=== PATIENT | male | born 1950 | race Caucasian/White ===

== ENCOUNTER 2020-11-18 13:35 | Outpatient (REF) | payer MEDICARE, SELFPAY ==
[2020-11-18 13:55] LABS: COVID-19 Test Negative (Negative)
== END 2020-11-18 13:36 | disposition home or self-care (01) ==
LOC: HO.LAB 13:35
PROVIDERS: Visit Provider Internal Medicine
DX: Z20.822 Contact with and (suspected) exposure to COVID-19 (principal)
CPT/HCPCS: 36415; 87635; C9803

== ENCOUNTER → 2021-02-10 09:47 | Outpatient (BNVA) | payer MEDICARE, SELFPAY | PROVIDERS: PCP Internal Medicine; Visit Provider Family Medicine Adult Medicine ==

== ENCOUNTER 2021-05-11 13:26 | Outpatient (REF) | payer MEDICARE, SELFPAY ==
[2021-05-11 15:00] LABS: Thyroid Stimulating Hormone 0.64 uIU/mL (0.32-4.0)
[2021-05-12 18:02] LABS: Follicle Stimulating Hormone 12.8 mIU/mL (1.6-8.0); Lutenizing Hormone 9.7 mIU/mL (1.6-15.2); Prolactin 2.6 ng/mL (2.0-18.0)
[2021-05-15 15:36] LABS: Testosterone, Free 46.6 pg/mL (30.0-135.0); Testosterone, Total 448 ng/dL (250-1100)
== END 2021-05-11 13:27 | disposition home or self-care (01) ==
LOC: HO.LAB 13:26
PROVIDERS: Visit Provider Psychiatry & Neurology Neurology
DX: D35.2 Benign neoplasm of pituitary gland (principal)
CPT/HCPCS: 36415; 83001; 83002; 84146; 84402; 84403; 84443

== ENCOUNTER 2021-09-07 12:05 | Emergency (ER) | payer MEDICARE, SELFPAY ==
[2021-09-07 12:19] VITALS: BP 148/77; PULSE 99; RESP 18; TEMP 36.7; O2SAT 95; BMI 31.9
--- NOTE | 2021-09-07 13:18 | ED_ITS ---
HPI - General Adult General Chief complaint: Skin/Abscess/Foreign Body Stated complaint: finger lac Time Seen by Provider: 09/07/21 12:16 Source: patient Mode of arrival: ambulatory Limitations: no limitations History of Present Illness HPI narrative: PATIENT PRESENTS TO ED CUTTING FINGER ON MANDOLINE. PATIENT STATES HE WAS CUTTING VEGETABLES AND ACCIDENTALLY CUT HIS THUMB. PATIENT STATES THERE WAS BLEEDING HE WENT TO THE PHARMACY AND GOT SPECIAL BAND-AID AND DRESSING CAME TO THE ED TO BE EVALUATED. PATIENT IS DIABETIC. PATIENT IS NOT ON ANY BLOOD THINNERS. PATIENT STATES NO OTHER TRAUMA OR ANY OTHER COMPLAINTS. Related Data Previous Rx's Medication Instructions Recorded cephalexin 500 mg capsule 500 mg PO QID 7 Days #28 cap 09/07/21 naproxen 500 mg tablet 500 mg PO BID PRN 10 Days #20 tab 09/07/21 Allergies Allergy/AdvReac Type Severity Reaction Status Date / Time UNK PAIN MED Allergy Intermediate HIVES Uncoded 04/24/20 14:53 Review of Systems Verdana 4l Review of Systems: Verdana 4d RIGHT THUMB Verdana 4d LACERATION Verdana 4d Yes all other systems are reviewed and are negative [facility] Past Medical History Surgical History (Updated 09/07/21 @ 12:21 by Mayuri Spears RN) H/O heart artery stent Social History Social History Advance Directives: Yes Advance Directives Information Provided: No Advance Directives on File: No Physical Exam Verdana 4l Vital Signs: Verdana 4d Verdana 4d Vital Signs: Verdana 4d Verdana 4Bd Last Vital Signs Verdana 4d Car Pick Up Driver New 4d Car Pick Up Driver New 4d Temp 98.0 F 09/07/21 12:19 Car Pick Up Driver New 4d Pulse 99 09/07/21 12:19 Car Pick Up Driver New 4d Resp 18 09/07/21 12:19 BP 148/77 H 09/07/21 12:19 Pulse Ox 95 09/07/21 12:19 BMI result Body Mass Index 31.9 Const: General: cooperative, healthy appearing, comfortable, no acute distress, well developed, alert, awake and Physically active Orientation/consciousness: patient oriented x3 HENMT: Head: Yes normal to inspection, Yes No palpable skull fracture present, Yes normocephalic, Yes atraumatic and No abrasion Eyes: General: appearance normal, both eyes and all related structures Neck: Neck: Yes normal visual inspection, Yes full ROM, Yes no lymphadenopathy, Yes no meningeal signs, Yes trachea midline and Yes supple Chest: Chest palpation & inspection: normal inspection of the chest and normal palpation of entire chest wall Resp: Effort & Inspection: normal respiratory effort and able to speak in complete sentences Auscultation: clear to auscultation bilaterally Cardio: Jugular venous distension: no JVD Heart sounds: S1 normal heart sound present and S2 normal heart sound present GI: Inspection: Yes normal to inspection and No abdominal wall ecchymosis Palpation (GI): Soft to palpation, not firm, nontender, no guarding and not rigid : General: No CVA tenderness and Yes no CVA tenderness Back/Spine/Pelvis: Back: no CVA tenderness, No CVA tenderness and No back tenderness Skin: Trauma: laceration (SKIN AVULSION RIGHT THUMB) Neuro: General: patient oriented x3, gait normal, no meningeal signs, no focal motor deficits and CN's II-XI intact bilaterally Extrem: General: Yes normal to inspection and Yes full ROM Hand/finger images: 1. POSITIVE FOR SKIN AVULSION. NEGATIVE FOR ANY BONE EXPOSURE OR NAILBED INJURY. NEGATIVE FOR ANY ACTIVE BLEEDING. CAPILLARY REFILL INTACT. PATIENT HAS COMPLETE RANGE OF MOTION OF FINGER. rEST OF EXTREMITY NORMAL AND MOTOR/NEURO/VASCULAR EXAM INTACT. Psych: Appearance: grossly normal, well kempt and not disheveled Course Course Course Narrative: X-RAY ORDERED. Reevaluation(s) Reevaluation #1: PATIENT REFUSED X-RAY AND STATES SKIN Avulsion is VERY SUPERFICIAL. PATIENT STATES UP-TO-DATE WITH TETANUS SHOT. WOUND CLEANED WITH STERILE SALINE AND BETADINE IODINE. PRESSURE DRESSING PLACED WITH XEROFORM PLACED. PATIENT WILL BE DISCHARGED WITH ANTIBIOTICS DUE TO HISTORY OF DIABETES. Time: 13:23 Medical Decision Making [facility] Narrative Medical decision making narrative: SUPERFICIAL SKIN AVULSION Discharge Plan Discharge Clinical Impression: Avulsion of skin Patient Disposition: Home, Self-Care Instructions: Skin Avulsion (ED) Additional Instructions: DUE TO HISTORY OF DIABETES HE WILL BE DISCHARGED WITH ANTIBIOTICS TO PREVENT INFECTION. RETURN TO THE ED FOR ANY REDNESS, SWELLING, PUS DISCHARGE, FOUL ODOR, BLUISH BLACK DISCOLORATION OF FINGER, FEVER, CHILLS, OR ANY OTHER CONCERNING SYMPTOMS. Prescriptions: New cephalexin 500 mg capsule 500 mg PO QID 7 Days Qty: 28 0RF naproxen 500 mg tablet 500 mg PO BID PRN (Reason: pain) 10 Days Qty: 20 0RF Referrals: Gabriella Rucker MD [Physician] - 2 days (SKIN AVULSION OF FINGER) Interventions: ED Discharge Assessment Last Done: 09/07/21 13:44 Discharge Date/Time: 09/07/21 13:44 Print Language: Dominican
== END 2021-09-07 13:44 | disposition home or self-care (01) ==
PROVIDERS: Emergency Provider Emergency Medicine Emergency Medical Services; PCP Internal Medicine
DX: S61.011A Laceration without foreign body of right thumb without damage to nail, initial encounter (principal); W26.0XXA Contact with knife, initial encounter; Y93.G1 Activity, food preparation and clean up; Y92.010 Kitchen of single-family (private) house as the place of occurrence of the external cause; Y99.9 Unspecified external cause status; E11.9 Type 2 diabetes mellitus without complications
CPT/HCPCS: 99281; 99282; 99283

== ENCOUNTER 2022-06-14 18:51 | Emergency (ER) | payer MEDICARE, SELFPAY ==
--- NOTE | ~2022-06-14 | CT_ITS ---
EXAMINATION: CT CHEST, ABDOMEN AND PELVIS WITHOUT CONTRAST CLINICAL INFORMATION: Shortness of breath hypotension with elevated creatinine COMPARISON: CT chest 05/03/2016 TECHNIQUE: Multidetector volumetric imaging was performed from the thoracic inlet through the pubic symphysis without IV contrast. Sagittal and coronal reformatted images were obtained on the technologist's workstation. This CT examination was performed using dose optimization techniques as appropriate, variously including the following: *Automated exposure control *Adjustment of mA and/or kV according to patient size (this includes techniques or standardized protocols for targeted exams where dose is matched to indication/reason for exam; i.e. extremities or head) *Use of iterative reconstruction technique DLP: 1021 mGy-cm FINDINGS: CHEST: Lung: The lungs are clear without worrisome focal opacity or nodule. Mediastinum: The mediastinum is unremarkable. The noncontrast enhanced aorta and great vessels are unremarkable. No hilar or mediastinal lymphadenopathy. Moderate coronary calcifications are present. Pericardium/Pleura: No significant effusion. No pleural mass or thickening. Chest Wall/Axilla: Unremarkable ABDOMEN/PELVIS: Peritoneal Space: No significant free air or free fluid identified. Liver, Gallbladder, Biliary Tree: The liver is normal in size, shape, and attenuation. No focal hepatic lesion or biliary ductal dilatation is present. The gallbladder is unremarkable with no evidence of radiopaque gallstones, gallbladder wall thickening, or obvious pericholecystic inflammatory changes. Pancreas: Unremarkable Spleen: Unremarkable Adrenal Glands: Unremarkable Kidneys and Ureters: The kidneys are normal in size, shape, and attenuation. No hydronephrosis, hydroureter, or calculi seen. No perinephric stranding. Bladder: Unremarkable Gastrointestinal Tract: The small and large bowel are unremarkable aside from some scattered colonic diverticula without diverticulitis. The appendix is unremarkable. Abdominal Wall: No significant hernia is appreciated. Lymph Nodes: No lymphadenopathy. Mild increased hazy opacity in the small bowel mesentery may be seen with mesenteric panniculitis. Vascular: Mild calcific plaque present in the aorta with some minimal infrarenal dilatation at 2.7 cm.. The IVC appears unremarkable. PELVIC VISCERA: There is mild BPH. Seminal vesicles appear normal. OSSEUS STRUCTURES: Marked degenerative changes are noted throughout the spine. No bony destructive lesions are seen. CT/CT abdomen pelvis wo IV con IMPRESSION: A cause for the patient's shortness of breath and hypotension has not been found. Incidental findings as described above. Fleischner guidelines were followed.
--- NOTE | ~2022-06-14 | XR_ITS ---
EXAMINATION: XR CHEST CLINICAL INFORMATION: Status post fall. Pain. COMPARISON: Chest x-ray of 07/11/2006 and selected images of the chest CT of 05/05/2016 TECHNIQUE: Frontal view of the chest was obtained. FINDINGS: Cardiomediastinal silhouette is stable. No abnormal tracheal deviation. The lungs are mildly hyperexpanded. No focal consolidation, changes of congestion or pleural effusions are seen. No evidence of pneumothorax. Displaced fractures of the visualized ribs. Multilevel degenerative changes in the spine. XR/XR chest 1V IMPRESSION: No displaced rib fracture is noted. No evidence acute pulmonary process, pleural effusions or pneumothorax.
[2022-06-14 19:07] VITALS: BP 110/50; PULSE 94; RESP 20; TEMP 36.7; O2SAT 96; BMI 31.1
--- NOTE | 2022-06-14 19:11 | ECG_ITS ---
Test Reason : FALL Blood Pressure : / mmHG Vent. Rate : 088 BPM Atrial Rate : 088 BPM P-R Int : 220 ms QRS Dur : 098 ms QT Int : 382 ms P-R-T Axes : 051 -23 082 degrees QTc Int : 462 ms Sinus rhythm with 1st degree A-V block Low voltage QRS Inferior infarct , age undetermined Anterolateral infarct , age undetermined Abnormal ECG When compared with ECG of 21-JUN-2016 22:10, Significant changes have occurred Referred By: Generic ED Physician Electronically Signed By:MELISSA MACHADO MD
[2022-06-14 19:47] LABS: MANUAL DIFF FLAG NO
[2022-06-14 19:51] LABS: Basophils Percent Auto 0.3 % (0-2); Eosinophils Absolute Auto 0.1 X10*3/uL (0.0-0.4); Eosinophils Percent Auto 0.7 % (0-4); Hematocrit 44.1 % (42.0-52.0); Hemoglobin 14.4 g/dl (14.0-18.0); Imm Gran Abs Auto 0.04 X10*3/uL (0.00-0.03); Imm Gran Pct Auto 0.4 % (0.0-0.4); Lymphocytes Absolute Auto 1.3 X10*3/uL (1.2-4.9); Lymphocytes Percent Auto 14.3 % (20-40); Mean Corpuscular HGB Conc 32.7 g/dl (31.0-36.0); Mean Corpuscular Hemoglobin 29.4 pg (27.0-33.0); Mean Corpuscular Volume 90.2 fL (80.0-98.0); Mean Platelet Volume 10.6 fL (9.4-12.4); Monocytes Absolute Auto 0.8 X10*3/uL (0.1-1.2); Monocytes Percent Auto 8.5 % (2-11); Neutrophils Absolute Auto 6.8 x10*3/uL (2.0-8.3); Neutrophils Percent Auto 75.8 % (45-73); Platelet Count 199 X10*3/uL (160-400); Red Blood Count 4.89 X10*6/uL (4.60-5.80); Red Cell Distribution Width 14.6 % (11.0-16.0)
[2022-06-14 20:00] VITALS: BP 97/56; PULSE 95; RESP 25; TEMP 37.2; O2SAT 96
[2022-06-14 20:06] LABS: Anion Gap 19 (12-20); Blood Urea Nitrogen 51 mg/dL (9-16); Calcium 9.4 mg/dL (8.4-10.2); Carbon Dioxide 27 mmol/L (22-29); Chloride 100 mmol/L (96-108); Creatinine Clr Calc Pharmacy 30.7; Estimated Glomerular Filt Rate 26; Glucose Random 259 mg/dL (60-115); Potassium 5.6 mmol/L (3.3-5.1); Sodium 140 mmol/L (135-145)
--- OUTSIDE RECORDS SUMMARY | 2022-06-14 20:11 | XMS_ITS | Continuity of Care Document ---
:1950 Author Organization [address], [address] [place] [address]- Care Team Providers Name Role Phone Mike DELA CRUZ MD, Valdez Watts Primary Care Physician Encounter [facility] Date(s): 06/02/21 - 07/02/[address], [address] [place], [place] [address] Allergies, Adverse Reactions, Alerts Substance Reaction Severity Status NKA Active Immunizations Given and Recorded Vaccine Date Status Refusal Reason influenza virus vaccine, inactivated1 04/20/17 Recorded pneumococcal 13-valent vaccine 04/04/17 Given tetanus/diphtheria/pertussis, acel(Tdap)2 05/26/15 Record ed Zoster Vaccine Live3 04/19/14 Recorded pneumococcal 23-valent vaccine4 03/22/14 Recorded [id number] Medications aspirin 81 mg oral tablet = 81 mg, By Mouth, Daily, # 30 tablet, 0 Refills, Maintenance, 06/24/16 11:58:38, Tablet Start Date: 06/24/16 Stop Date: 07/24/16 Status: Orderedcarvedilol 6.25 mg oral tablet 6.25 mg, 1, tablet, By Mouth, 2 times a day, PER DR ALMONTE ON 04/04/17, # 180 tablet, Refills 3, Tot. Refills 3, Maintenance, 04/15/17 11:06:09, Route to Pharmacy Electronically, [id number], [facility] Start Date: 04/15/17 Status: OrderedCrestor 40 mg oral tablet 1 tablet = 40 mg, By Mouth, Daily, PER DR ALMONTE ON 04/04/17, # 90 tablet, 3 Refills, Maintenance,04/15/17 11:06:01, Tablet Start Date: 04/15/17 Status: Orderedgabapentin 300 mg oral capsule 600 mg, 2, capsule, By Mouth, 2 times a day, # 90 capsule, Refills 3, Tot. Refills 3, Maintenance, 05/17/17 16:29:40 EDT, Route to Pharmacy Electronically, [id number], [facility] [address] [place] [address] Start Date: 05/17/17 Status: OrderedLantus 100 u/ml subcutaneous solution = 13 units, Subcutaneous Injection, Daily, # 10 mL, 0 Refills, Maintenance, 02/16/18 7:02:58 EDT, Solution Start Date: 02/16/18 Status: Orderedlisinopril 10 mg oral tablet 10 mg, 1, tablet, By Mouth, Daily, # 30 tablet, Refills 0, Maintenance, 02/16/18 7:03:50 EDT Start Date: 02/16/18 Status: OrderedmetFORMIN 500 mg oral tablet 1 tablet = 500 mg, By Mouth, 2 times a day, PER DR ALMONTE ON 04/04/17, # 180 tablet, 3 Refills, Maintenance, 04/15/17 11:06:01, Tablet Start Date: 04/15/17 Status: Orderednitroglycerin 0.4 mg sublingual tablet 1 tablet = 0.4 mg, Sublingual, Every 5 minutes, PRN for chest pain, # 100 tablet, 0 Refills, Maintenance, 02/16/18 7:04:36 EDT, Tablet Start Date: 02/16/18 Status: OrderedPlavix 75 mg oral tablet 75 mg, 1, tablet, By Mouth, Daily, PER DR ALMONTE ON 04/04/17, # 90 tablet, Refills 3, Tot. Refills3, Maintenance, 04/15/17 11:06:02, Route to Pharmacy Electronically, [id number], [facility] Start Date: 04/15/17 Status: OrderedSuper B Complex 1 tablet, By Mouth, Daily, 0 Refills, Maintenance, 02/16/18 7:02:13 EDT Start Date: 02/16/18 Status: OrderedVitamin D3 2000 intl units oral tablet 1 tablet = 2,000 International_Units, By Mouth, Daily, # 90 tablet, 3 Refills, Maintenance, 04/04/1716:21:47, Tablet Start Date: 04/04/17 Status: Ordered Problem List Condition Effective Dates Status Health Status Informant Adverse effects of medication, Active levorphanol(Confirmed)1 Asthma(Confirmed) Active Buttock pain(Confirmed) Active CAD - Coronary artery 06/21/16 Active Acute ; disease(Confirmed) Testosterone level Active decreased(Confirmed) Diabetes mellitus type 2(Confirmed) Active Diminished libido(Confirmed) Active Drug interaction(Confirmed)2 Active Constipation, opioid treatment Active associated(Confirmed) Limitation due to Active disability(Confirmed)3, 4 History of total knee 11/02/07 Active replacement(Confirmed)5 History of poliomyelitis(Confirmed)6 Active Hand joint pain(Confirmed) Active Hearing difficulty(Confirmed) Active History of arthroscopic shoulder 09/19/09 Active surgery(Confirmed)7 History of repair of right rotator 2003 Active cuff(Confirmed) Hypercholesteremia(Confirmed) Active Hypertriglyceridemia(Confirmed) Active Knee pain, left(Confirmed) Active Leg cramps, nocturnal(Confirmed) Active Failed back syndrome, Active lumbosacral(Confirmed) Major depression(Confirmed) Active Meralgia paresthetica(Confirmed) Active Neck pain(Confirmed) Active Neuralgia and neuritis, lower Active extremity, left(Confirmed) MONSERRAT - Obstructive sleep Active apnea(Confirmed)8, 9 Leg pain, left(Confirmed) Active Radicular pain of lumbosacral Active region(Confirmed) Repair of quadriceps(Confirmed)2000 Active Sacroiliac joint pain(Confirmed) Active Shoulder pain, left(Confirmed)11 Active Lack of adequate sleep(Confirmed) Active Status post coronary artery stent 2006 Active placement(Confirmed) Situational stress(Confirmed) Active Tinnitus(Confirmed) Active Tobacco user(Confirmed) Active Vitamin D deficiency(Confirmed) Active 06/21-08/22/14: 6mg/dose TID for 1.5 days. AEs: bright red face, big hives on my forehead and whole face/cheeks were really itchy. He reports difficulty staying awake, even while involved w/activity andfeeling impaired.2h/o tramadol treatment; cholesterol lowering agent and opioid co-treatment(current); h/o total CK > 150 < 3103Updated Oswestry Disability Index: 52% severe disability and [place] Back Pain Disability Scale: 47. Initial Neck Disability Index: 24% on 08/09/2014.4Updated Oswestry Disability Index: 17.7% ( mininal disability ) on 07/12/13; updated [place] Back PainDisability Scale score: 26 on 07/12/13. Updated Oswestry Disability Index: 40% (moderate disability ) on 01/11/13; updated [place] Back Pain Disability Scale score: 44 on 01/10/13 Updated Oswestry Disability Index: 44% ( severe disability ) on 02/21/12; updated [place] Back Pain Disability Scale score: 33 on 02/21/12 Initial Oswestry Disability Index: 46% ( severe disability )on 09/14/10; initial [place] Back Pain Disability Scale score: 41 on On 11/02/2007 underwent left total knee arthroplasty with hardware removal for osteoarthritis, left knee with retained hardware by Son Rivera M.D. at [facility].6with no apparent [id number], Dr. 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 He reports a 38 year history of smoking at least 2 packs a day.; Number of years: 38; entered on: 07/02/16 Sex
--- OUTSIDE RECORDS SUMMARY | 2022-06-14 20:11 | XMS_ITS | Continuity of Care Document ---
:1950 Author Organization [facility] Address [address] [place] [address]- Care Team Providers Name Role Phone Valdez Mckeon III, MD Primary Care Physician Encounter [facility] Date(s): 02/09/22 - 02/09/[address] [address] Discharge Disposition: A-D/C Home Attending Physician: Thony Hodgson MD Admitting Physician: Thony Hodgson MD Referring Physician: Thony Hodgson MD Allergies, Adverse Reactions, Alerts No Known Allergies Immunizations Given and Recorded Vaccine Date Status Refusal Reason influenza virus vaccine, inactivated1 04/20/17 Recorded pneumococcal 13-valent vaccine 04/04/17 Given tetanus/diphtheria/pertussis, acel(Tdap)2 05/26/15 Record ed Zoster Vaccine Live3 04/19/14 Recorded pneumococcal 23-valent vaccine4 03/22/14 Recorded 1[facility] [id number] [id number] [facility] Medications Albuterol (Eqv-ProAir HFA) Inhalation, Every 6 hours, PRN Wheezing/Shortness of Breath, 0 Refills, Maintenance, 09/30/21 9:31:00 EST, Partial fill upon patient request if the prescription is for a schedule II opioid drug. Start Date: 09/30/21 Status: OrderedBasaglar KwikPen = 22 units, Subcutaneous Infusion, 2 times a day, 0 Refills, Maintenance, 09/30/21 9:34:00 EST, Partial fill upon patient request if the prescription is for a schedule II opioid drug. Start Date: 09/30/21 Status: Orderedcarvedilol 6.25 mg oral tablet 6.25 mg, 1, tablet, By Mouth, 2 times a day, PER DR ALMONTE ON 04/04/17, # 180 tablet, Refills 3, Tot. Refills 3, Maintenance, 04/15/17 11:06:09, Route to Pharmacy Electronically, [id number], [facility] Start Date: 04/15/17 Status: Orderedchlorthalidone 25 mg oral tablet 25 mg, 1, tablet, By Mouth, Daily at bedtime, # 30 tablet, Refills 0, Maintenance, 02/02/22 15:48:00EDT, Partial fill upon patient request if the prescription is for a schedule II opioid drug. Start Date: 02/02/22 Status: OrderedCrestor 40 mg oral tablet 1 tablet = 40 mg, By Mouth, Daily, PER DR ALMONTE ON 04/04/17, # 90 tablet, 3 Refills, Maintenance,04/15/17 11:06:01, Tablet Start Date: 04/15/17 Status: Orderedgabapentin 800 mg oral tablet 1 tablet = 800 mg, By Mouth, 3 times a day, # 270 tablet, 0 Refills, Maintenance, 02/02/22 15:46:00 EDT, Tablet, Partial fill upon patient request if the prescription is for a schedule II opioid drug. Start Date: 02/02/22 Status: Orderedlisinopril 10 mg oral tablet 10 mg, 1, tablet, By Mouth, Daily at bedtime, # 30 tablet, Refills 0, Maintenance, 02/16/18 7:03:50 EDT Start Date: 02/16/18 Status: Orderednitroglycerin 0.4 mg sublingual tablet 1 tablet = 0.4 mg, Sublingual, Every 5 minutes, PRN for chest pain, # 100 tablet, 0 Refills, Maintenance, 02/16/18 7:04:36 EDT, Tablet Start Date: 02/16/18 Status: OrderedoxyCODONE 5 mg oral tablet 5 mg, 1, tablet, By Mouth, Every 6 hours, PRN, # 42 tablet, Refills 0, Tot. Refills 0, Maintenance, Pain , Mild, 02/09/22 12:44:00 EDT, Route to Pharmacy Electronically, [facility]/pharmacy #[id number], Partial fill upon patient request if the prescription is for... Start Date: 02/09/22 Status: OrderedSuper B Complex 1 tablet, By Mouth, Daily at bedtime, 0 Refills, Maintenance, 02/16/18 7:02:13 EDT Start Date: 02/16/18 Status: OrderedtiZANidine 4 mg oral tablet 4 mg, 1, tablet, By Mouth, 3 times a day, # 90 tablet, Refills 0, Tot. Refills 0, Maintenance, 02/09/22 12:44:00 EDT, Route to Pharmacy Electronically, [facility]/pharmacy #[id number], Partial fill upon patient request if the prescription is for a schedule II opio... Start Date: 02/09/22 Status: OrderedTrulicity Pen = 1.5 mg, Subcutaneous Infusion, Every Tuesday, 0 Refills, Maintenance, 09/30/21 9:32:00 EST, Partial fill upon patient request if the prescription is for a schedule II opioid drug. Start Date: 09/30/21 Status: OrderedVitamin D3 2000 intl units oral tablet 1 tablet = 2,000 International_Units, By Mouth, Daily, # 90 tablet, 3 Refills, Maintenance, 04/04/1716:21:47, Tablet Start Date: 04/04/17 Status: Ordered Problem List Condition Effective Dates Status Health Status Informant Adverse effects of medication, Active levorphanol(Confirmed)1 Asthma(Confirmed) Active CAD - Coronary artery 06/21/16 Active Acute ; disease(Confirmed) Testosterone level Active decreased(Confirmed) Diabetes mellitus type 2(Confirmed) Active Diminished libido(Confirmed) Active Drug interaction(Confirmed)2 Active Limitation due to Active disability(Confirmed)3, 4 History of total knee 11/02/07 Active replacement(Confirmed)5 History of poliomyelitis(Confirmed)6 Active Hand joint pain(Confirmed) Active Hearing difficulty(Confirmed) Active History of arthroscopic shoulder 09/19/09 Active surgery(Confirmed)7 History of repair of right rotator 2003 Active cuff(Confirmed) Hypercholesteremia(Confirmed) Active Hypertriglyceridemia(Confirmed) Active Knee pain, left(Confirmed) Active Leg cramps, nocturnal(Confirmed) Active Failed back syndrome, Active lumbosacral(Confirmed) Meralgia paresthetica(Confirmed) Active Neck pain(Confirmed) Active Neuralgia and neuritis, lower Active extremity, left(Confirmed) Obese class I(Confirmed) Active MONSERRAT - Obstructive sleep Active apnea(Confirmed)8, 9 Leg pain, left(Confirmed) Active Pituitary microadenoma(Confirmed) Active Radicular pain of lumbosacral Active region(Confirmed) Repair of quadriceps(Confirmed)10 2000 Active Sacroiliac joint pain(Confirmed) Active Shoulder pain, [...] Oswestry Disability Index: 52% severe disability and [place] Back Pain Disability Scale: 47. Initial Neck Disability Index: 24% on 08/09/2014.4Updated Oswestry Disability Index: 17.7% ( mininal disability ) on 07/12/13; updated [place] Back PainDisability Scale score: 26 on 07/12/13. Updated Oswestry Disability Index: 40% (moderate disability ) on 01/11/13; updated [place] Back Pain Disability Scale score: 44 on 01/10/13 Updated Oswestry Disability Index: 44% ( severe disability ) on 02/21/12; updated [place] Back Pain Disability Scale score: 33 on 02/21/12 Initial Oswestry Disability Index: 46% ( severe disability )on 09/14/10; initial [place] Back Pain Disability Scale score: 41 on On 11/02/2007 underwent left total knee arthroplasty with hardware removal for osteoarthritis, left knee with retained hardware by Son Rivera M.D. at [facility].6with no apparent [id number], Dr. Guanakito Villegas, [id number] [place] Sleepiness Scale: 11 on 07/16/2014.9[facility] study performed on 10/01/06 describes mild sleep- disordered breathing with an RDI of 1310of right [id number] to chronic rotator cuff injury Results Radiology Reports Exam Date Time Procedure Performing Provider Status 02/09/22 9:28 AM C-Arm > 1 Hour Merna Alvarado; Auth (Verifie d) Notes:(C-Arm > 1 Hour) Reason For Exam: disc C5-C6 ACDFRESULT: C-Arm > 1 Hour Spine Single View, C-Arm > 1 Hour INDICATION: Reason: disc C5-C6 ACDF COMPARISONS: None TECHNIQUE: Fluoroscopy support was provided. There was no radiologist in attendance. FLUOROSCOPY TIME: 48.0 seconds EXPOSURE: 21.87 mGy TECHNOLOGIST TIME: 1 hour 5 minutes FINDINGS: 14 images were submitted showing ACDF. Please refer to operative note for full details. IMPRESSION: See above. WSN: [id number] Ordering Physician: Thony Hodgson Dictated By: Anthony Garcia MD Dictated Date/Time: 02/09/22 10:07 a Reviewed By: Anthony Garcia MD Signed By: Anthony Garcia MD Signed Date/Time: 02/09/22 10:07 am Transcribed By: BENI Transcribed Date/Time: 02/09/22 10:07 am Exam Date Time Procedure Performing Provider Status 02/09/22 9:28 AM Spine Single View Merna Alvarado; Auth (Verif ied) Notes:(Spine Single View) Reason For Exam: disc C5-C6 ACDFRESULT: Spine Single View Spine Single View, C-Arm > 1 Hour INDICATION: Reason: disc C5-C6 ACDF COMPARISONS: None TECHNIQUE: Fluoroscopy support was provided. There was no radiologist in attendance. FLUOROSCOPY TIME: 48.0 seconds EXPOSURE: 21.87 mGy TECHNOLOGIST TIME: 1 hour 5 minutes FINDINGS: 14 images were submitted showing ACDF. Please refer to operative note for full details. IMPRESSION: See above. WSN: [id number] Ordering Physician: Thony Hodgson Dictated By: Anthony Garcia MD Dictated Date/Time: 02/09/22 10:07 a Reviewed By: Anthony Garcia MD Signed By: Anthony Garcia MD Signed Date/Time: 02/09/22 10:07 am Transcribed By: BENI Transcribed Date/Time: 02/09/22 10:07 am Vital Signs Most recent to oldest 1 2 3 [Reference Range]: Height 170 cm 170 cm (02/09/22 6:23 AM) (02/04/22 11:07 AM) Weight 97.7 kg 99.5 kg (02/09/22 6:23 AM) (02/04/22 11:07 AM) Oxygen Saturation [94-100 96 % 95 % 94 % %] (02/09/22 12:00 PM) (02/09/22 11:15 AM) (02/09/22 11:0 0 AM) Pulse Rate [55-90 bpm] 76 bpm (02/09/22 6:23 AM) Body Mass Index 33.81 34.43 [18.5-24.99] *>HHI* *>HHI* (02/09/22 6:23 AM) (02/04/22 11:07 AM) Blood Pressure 128/81 mm Hg 131/70 mm Hg 144/69 mm Hg [90-138/55-84 mm Hg] (02/09/22 12:00 PM) (02/09/22 11:15 AM) *H* (02/09/22 11:00 AM ) Respiratory Rate [16-30 17 br/min 17 br/min 14 br/mi n br/min] (02/09/22 12:00 PM) (02/09/22 11:15 AM) *L* (02/09/22 11:00 AM ) Temperature [96.8-100.4 98.9 DegF 97.3 DegF 97.4 Deg F DegF] (02/09/22 12:00 PM) (02/09/22 11:00 AM) (02/09/22 9:45 AM) Liters per Minute 2 L/min 6 L/min (02/09/22 10:15 AM) (02/09/22 9:45 AM) Mode of Delivery (Oxygen) Room air Room air Room a ir (02/09/22 12:00 PM) (02/09/22 11:00 AM) (02/09/22 10:4 5 AM) Blood pressure sites Arm, left Arm, left Arm, right (02/09/22 11:15 AM) (02/09/22 11:00 AM) (02/09/22 10:4 5 AM) Temperature Route Temporal Temporal Temporal (02/09/22 12:00 PM) (02/09/22 11:00 AM) (02/09/22 9:45 AM) Dry Weight 97.7 kg (02/09/22 6:23 AM) Weight Obtained Via Standing scale Patient/family stated (02/09/22 6:23 AM) (02/04/22 11:07 AM) Dry Weight Obtained Via Standing scale (02/09/22 6:23 AM) Social History Social History Type Response Smoking Status Former smoker; Type: Cigaret mckenna; 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 He reports a 38 year history of smoking at least 2 packs a day.; Number of years: 38; entered on: 07/02/16 Sex
--- OUTSIDE RECORDS SUMMARY | 2022-06-14 20:11 | XMS_ITS | Continuity of Care Document ---
:1950 Author Organization [address], [address] [place] [address]- Care Team Providers Name Role Phone Mike DELA CRUZ MD, Valdez Watts Primary Care Physician [facility] Date(s): 09/14/21 - 10/14/[address], [address] [place], [place] [address] Allergies, Adverse Reactions, Alerts No Known Allergies Immunizations Given and Recorded Vaccine Date Status Refusal Reason influenza virus vaccine, inactivated1 04/20/17 Recorded pneumococcal 13-valent vaccine 04/04/17 Given tetanus/diphtheria/pertussis, acel(Tdap)2 05/26/15 Record ed Zoster Vaccine Live3 04/19/14 Recorded pneumococcal 23-valent vaccine4 03/22/14 Recorded 1Location History: [facility] [id number] History: [facility] History[facility] Medications Albuterol (Eqv-ProAir HFA) Inhalation, Every 6 hours, 0 Refills, Maintenance, 09/30/21 9:31:00 EST, Partial fill upon patient request if the prescription is for a schedule II opioid drug. Start Date: 09/30/21 Status: Orderedaspirin 81 mg oral tablet = 81 mg, By Mouth, Daily, # 30 tablet, 0 Refills, Maintenance, 06/24/16 11:58:38, Tablet Start Date: 06/24/16 Stop Date: 07/24/16 Status: OrderedBasaglar KwikPen Subcutaneous Infusion, Daily, 0 Refills, Maintenance, 09/30/21 9:34:00 EST, Partial fill upon patient request if the prescription is for a schedule II opioid drug. Start Date: 09/30/21 Status: Orderedcarvedilol 6.25 mg oral tablet 6.25 mg, 1, tablet, By Mouth, 2 times a day, PER DR ALMONTE ON 04/04/17, # 180 tablet, Refills 3, Tot. Refills 3, Maintenance, 04/15/17 11:06:09, Route to Pharmacy Electronically, [id number], [facility] Start Date: 04/15/17 Status: OrderedCrestor 40 mg oral tablet 1 tablet = 40 mg, By Mouth, Daily, PER DR ALMONTE ON 04/04/17, # 90 tablet, 3 Refills, Maintenance,04/15/17 11:06:01, Tablet Start Date: 04/15/17 Status: OrderedDuloxetine By Mouth, 0 Refills, Maintenance, 09/30/21 9:33:00 EST, Partial fill upon patient request if the prescription is for a schedule II opioid drug. Start Date: 09/30/21 Status: Orderedgabapentin 300 mg oral capsule 600 mg, 2, capsule, By Mouth, 2 times a day, # 90 capsule, Refills 3, Tot. Refills 3, Maintenance, 05/17/17 16:29:40 EDT, Route to Pharmacy Electronically, [id number], [facility] - [address] [place] [address] Start Date: 05/17/17 Status: OrderedLantus 100 u/ml subcutaneous solution = 13 units, Subcutaneous Injection, Daily, # 10 mL, 0 Refills, Maintenance, 02/16/18 7:02:58 EDT, Solution Start Date: 02/16/18 Status: Orderedlisinopril 10 mg oral tablet 10 mg, 1, tablet, By Mouth, Daily, # 30 tablet, Refills 0, Maintenance, 02/16/18 7:03:50 EDT Start Date: 02/16/18 Status: OrderedMeloxicam Daily, 0 Refills, Maintenance, 09/30/21 9:33:00 EST, Partial fill upon patient request if the prescription is for a schedule II opioid drug. Start Date: 09/30/21 Status: OrderedmetFORMIN 500 mg oral tablet 1 [...] Maintenance, 04/15/17 11:06:02, Route to Pharmacy Electronically, [id number], [facility] Start Date: 04/15/17 Status: OrderedSuper B Complex 1 tablet, By Mouth, Daily, 0 Refills, Maintenance, 02/16/18 7:02:13 EDT Start Date: 02/16/18 Status: OrderedTrulicity Pen Subcutaneous Infusion, 0 Refills, Maintenance, 09/30/21 9:32:00 EST, Partial [...] sleep(Confirmed) Active Status post coronary artery stent 2005 Active placement(Confirmed) Situational stress(Confirmed) Active Tinnitus(Confirmed) Active [...] Index: 52% severe disability and [place] Back Pain Disability Scale: 47. Initial Neck Disability Index: 24% on 08/09/2014.4Updated Oswestry Disability Index: 17.7% ( mininal disability ) on 07/12/13; updated [place] Back PainDisability Scale score: 26 on 07/12/13. Updated [place]estry Disability Index: 40% (moderate disability ) on 01/11/13; updated [place] Back Pain Disability Scale score: 44 on 01/10/13 Updated [place]estry Disability Index: 44% ( severe disability ) on 02/21/12; updated [place] Back Pain Disability Scale score: 33 on 02/21/12 Initial [place]estry Disability Index: 46% ( severe disability )on 09/14/10; initial [place] Back Pain Disability Scale score: 41 on On 11/02/2007 underwent left total knee arthroplasty with hardware removal for osteoarthritis, left knee with retained hardware by Son Rivera M.D. at [facility].6with no apparent jlwgaymy6Cixr, Dr. 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 He reports a 38 year history of smoking at least 2 packs a day.; Number of years: 38; entered on: 07/02/16 Sex
--- OUTSIDE RECORDS SUMMARY | 2022-06-14 20:11 | XMS_ITS | Continuity of Care Document ---
:1950 Author Organization [address], [address] [place] [address]- Care Team Providers Name Role Phone Mike DELA CRUZ MD, Valdez Watts Primary Care Physician [facility] Date[facility]s): 09/08/21 - 10/08/[address], [address] [place], [place] [address] Allergies, Adverse Reactions, Alerts No Known Allergies Immunizations Given and Recorded Vaccine Date Status Refusal Reason influenza virus vaccine, inactivated1 04/20/17 Recorded pneumococcal 13-valent vaccine 04/04/17 Given tetanus/diphtheria/pertussis, acel(Tdap)2 05/26/15 Record ed Zoster Vaccine Live3 04/19/14 Recorded pneumococcal 23-valent vaccine4 03/22/14 Recorded 1[facility] History: [facility] [id number] [facility]: [facility] Medications Albuterol (Eqv-ProAir HFA) Inhalation, Every 6 [...] Maintenance, 04/15/17 11:06:09, Route to Pharmacy Electronically, [id number], [facility] Start Date: 04/15/17 Status: [...] 05/17/17 16:29:40 EDT, Route to Pharmacy Electronically, [id number], [facility] - [address] [place] [address] Start Date: 05/17/17 Status: OrderedLantus 100 u/ml [...] Maintenance, 04/15/17 11:06:02, Route to Pharmacy Electronically, [id number], [facility] Start Date: 04/15/17 Status: [...] surgery(Confirmed)7 History of repair of right rotator 2002 Active cuff(Confirmed) Hypercholesteremia(Confirmed) Active Hypertriglyceridemia(Confirmed) Active Knee [...] Oswestry Disability Index: 52% severe disability and [place] Back Pain Disability Scale: 47. Initial Neck Disability Index: 24% on 08/09/2014.4Updated Oswestry Disability Index: 17.7% ( mininal disability ) on 07/12/13; updated [place] Back PainDisability Scale score: 26 on 07/12/13. Updated Oswestry Disability Index: 40% (moderate disability ) on 01/11/13; updated [place] Back Pain Disability Scale score: 44 on 01/10/13 Updated Oswestry Disability Index: 44% ( severe disability ) on 02/21/12; updated [place] Back Pain Disability Scale score: 33 on 02/21/12 Initial Oswestry Disability Index: 46% ( severe disability )on 09/14/10; initial [place] Back Pain Disability Scale score: 41 on On 11/02/2007 underwent left total knee arthroplasty with hardware removal for osteoarthritis, left knee with retained hardware by Son Rivera M.D. at [facility].6with no apparent khwxeagr4Zrdd, Dr. 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 He reports a 38 year history of smoking at least 2 packs a day.; Number of years: 38; entered on: 07/02/16 Sex
--- OUTSIDE RECORDS SUMMARY | 2022-06-14 20:11 | XMS_ITS | Continuity of Care Document ---
:1950 Author Organization [address], [address] [place] [address]- Care Team Providers Name Role Phone Valdez Mckeon III, MD Primary Care Physician Encounter [facility] Date(s): 03/10/22 - 04/09/[address], [address] [place], [place] [address] Attending Physician: AdmFlorencio minor Admitting Physician: AdmtrFlorencio Referring Physician: Admtr, Ar8 Allergies, Adverse Reactions, Alerts No Known Allergies Immunizations Given and Recorded Vaccine Date Status Refusal Reason influenza virus vaccine, inactivated1 04/20/17 Recorded pneumococcal 13-valent vaccine 04/04/17 Given tetanus/diphtheria/pertussis, acel(Tdap)2 05/26/15 Record ed Zoster Vaccine Live3 04/19/14 Recorded pneumococcal 23-valent vaccine4 03/22/14 Recorded 1[facility] History[facility] [id number] [facility] [id number] History: [facility] [address] [id number] [facility] Medications Albuterol (Eqv-ProAir HFA) Inhalation, Every 6 [...] Maintenance, 04/15/17 11:06:09, Route to Pharmacy Electronically, [id number], [facility] Start Date: 04/15/17 Status: [...] 02/09/22 12:44:00 EDT, Route to Pharmacy Electronically, [facility]/pharmacy #[id number], Partial fill upon patient request [...] 02/09/22 12:44:00 EDT, Route to Pharmacy Electronically, [facility]/pharmacy #[id number], Partial fill upon patient request [...] Oswestry Disability Index: 52% severe disability and [place] Back Pain Disability Scale: 47. Initial Neck Disability Index: 24% on 08/09/2014.4Updated Oswestry Disability Index: 17.7% ( mininal disability ) on 07/12/13; updated [place] Back PainDisability Scale score: 26 on 07/12/13. Updated Oswestry Disability Index: 40% (moderate disability ) on 01/11/13; updated [place] Back Pain Disability Scale score: 44 on 01/10/13 Updated Oswestry Disability Index: 44% ( severe disability ) on 02/21/12; updated [place] Back Pain Disability Scale score: 33 on 02/21/12 Initial Oswestry Disability Index: 46% ( severe disability )on 09/14/10; initial [place] Back Pain Disability Scale score: 41 on On 11/02/2007 underwent left total knee arthroplasty with hardware removal for osteoarthritis, left knee with retained hardware by Son Rivera M.D. at [facility].6with no apparent qoskdpxp4Bgey, Dr. 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 He reports a 38 year history of smoking at least 2 packs a day.; Number of years: 38; entered on: 07/02/16 Sex Care Team PersonnelName: Mike DELA CRUZ MD, Valdez Watts Address: [address] [place] [id number]
--- OUTSIDE RECORDS SUMMARY | 2022-06-14 20:11 | XMS_ITS | Continuity of Care Document ---
:1950 Author Organization [address], [address] [place] [address]- Care Team Providers Name Role Phone Valdez Mckeon III, MD Primary Care Physician [place] [facility] Date(s): 03/08/22 - 04/07/[address], [address] [place] [address]- Allergies, Adverse Reactions, Alerts No Known Allergies Immunizations Given and Recorded Vaccine Date Status Refusal Reason influenza virus vaccine, inactivated1 04/20/17 Recorded pneumococcal 13-valent vaccine 04/04/17 Given tetanus/diphtheria/pertussis, acel(Tdap)2 05/26/15 Record ed Zoster Vaccine Live3 04/19/14 Recorded pneumococcal 23-valent vaccine4 03/22/14 Recorded 1Location History: [facility] [id number] History: [facility] [address] [id number] History: [facility] [id number] [facility] Medications Albuterol (Eqv-ProAir HFA) Inhalation, Every 6 [...] Maintenance, 04/15/17 11:06:09, Route to Pharmacy Electronically, [id number], [facility] Start Date: 04/15/17 Status: [...] 02/09/22 12:44:00 EDT, Route to Pharmacy Electronically, [facility]/pharmacy #[id number], Partial fill upon patient request if the [...] 02/09/22 12:44:00 EDT, Route to Pharmacy Electronically, [facility]/pharmacy #[id number], Partial fill upon patient request if the [...] Oswestry Disability Index: 52% severe disability and [place] Back Pain Disability Scale: 47. Initial Neck Disability Index: 24% on 08/09/2014.4Updated Oswestry Disability Index: 17.7% ( mininal disability ) on 07/12/13; updated [place] Back PainDisability Scale score: 26 on 07/12/13. Updated Oswestry Disability Index: 40% (moderate disability ) on 01/11/13; updated [place] Back Pain Disability Scale score: 44 on 01/10/13 Updated Oswestry Disability Index: 44% ( severe disability ) on 02/21/12; updated [place] Back Pain Disability Scale score: 33 on 02/21/12 Initial Oswestry Disability Index: 46% ( severe disability )on 09/14/10; initial [place] Back Pain Disability Scale score: 41 on On 11/02/2007 underwent left total knee arthroplasty with hardware removal for osteoarthritis, left knee with retained hardware by Son Rivera M.D. at [facility].6with no apparent ssfslzhd2Uvxp, Dr. 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 He reports a 38 year history of smoking at least 2 packs a day.; Number of years: 38; entered on: 07/02/16 Sex Care Team PersonnelName: Mike DELA CRUZ MD, Valdez Watts Address: [address] [place] [address]
--- OUTSIDE RECORDS SUMMARY | 2022-06-14 20:11 | XMS_ITS | Continuity of Care Document ---
:1950 Author Organization [facility] Address [address] [place] [address]- Care Team Providers Name Role Phone Valdez Mckeon III, MD Primary Care Physician [facility]counter [facility] Date(s): 02/02/22 - 03/04/22 [facility] [address] [place] [address]- Attending Physician: Admtr, Ar8 Allergies, Adverse Reactions, Alerts No Known Allergies Immunizations Given and Recorded Vaccine Date Status Refusal Reason influenza virus vaccine, inactivated1 04/20/17 Recorded pneumococcal 13-valent vaccine 04/04/17 Given tetanus/diphtheria/pertussis, acel(Tdap)2 05/26/15 Record ed Zoster Vaccine Live3 04/19/14 Recorded pneumococcal 23-valent vaccine4 03/22/14 Recorded 1[facility] History[facility] [id number] [id number] [facility]WC5Sxgymzwt [facility] Medications Albuterol (Eqv-ProAir HFA) Inhalation, Every 6 [...] Maintenance, 04/15/17 11:06:09, Route to Pharmacy Electronically, [id number], [facility] Start Date: 04/15/17 Status: [...] 02/09/22 12:44:00 EDT, Route to Pharmacy Electronically, [facility]/pharmacy #[id number], Partial fill upon patient request if [...] 02/09/22 12:44:00 EDT, Route to Pharmacy Electronically, [facility]/pharmacy #[id number], Partial fill upon patient request if [...] Oswestry Disability Index: 52% severe disability and [place] Back Pain Disability Scale: 47. Initial Neck Disability Index: 24% on 08/09/2014.4Updated Oswestry Disability Index: 17.7% ( mininal disability ) on 07/12/13; updated [place] Back PainDisability Scale score: 26 on 07/12/13. Updated Oswestry Disability Index: 40% (moderate disability ) on 01/11/13; updated [place] Back Pain Disability Scale score: 44 on 01/10/13 Updated Oswestry Disability Index: 44% ( severe disability ) on 02/21/12; updated [place] Back Pain Disability Scale score: 33 on 02/21/12 Initial Oswestry Disability Index: 46% ( severe disability )on 09/14/10; initial [place] Back Pain Disability Scale score: 41 on On 11/02/2007 underwent left total knee arthroplasty with hardware removal for osteoarthritis, left knee with retained hardware by Son Rivera M.D. at [facility].6with no apparent edqckowz6Bpup, Dr. 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 He reports a 38 year history of smoking at least 2 packs a day.; Number of years: 38; entered on: 07/02/16 Sex
--- OUTSIDE RECORDS SUMMARY | 2022-06-14 20:11 | XMS_ITS | Continuity of Care Document ---
:1950 Author Organization [facility] Address [address] [place] [address]- Care Team Providers Name Role Phone Valdez Mckeon III, MD Primary Care Phys[id number] Date(s): 10/27/21 - 12/02/[address] [address] Attending Physician: Thony Hodgson MD Admitting Physician: Thony Hodgson MD Allergies, Adverse Reactions, Alerts No Known Allergies Immunizations Given and Recorded Vaccine Date Status Refusal Reason influenza virus vaccine, inactivated1 04/20/17 Recorded pneumococcal 13-valent vaccine 04/04/17 Given tetanus/diphtheria/pertussis, acel(Tdap)2 05/26/15 Record ed Zoster Vaccine Live3 04/19/14 Recorded pneumococcal 23-valent vaccine4 03/22/14 Recorded 1[facility]4Location History: [facility] Medications Albuterol (Eqv-ProAir HFA) Inhalation, Every 6 [...] Maintenance, 04/15/17 11:06:09, Route to Pharmacy Electronically, [id number], [facility] Start Date: 04/15/17 Status: [...] 05/17/17 16:29:40 EDT, Route to Pharmacy Electronically, [id number], [facility] [address] [place] [address] Start Date: 05/17/17 Status: OrderedLantus 100 u/ml [...] Maintenance, 04/15/17 11:06:02, Route to Pharmacy Electronically, [id number], [facility] Start Date: 04/15/17 Status: [...] Oswestry Disability Index: 52% severe disability and [place] Back Pain Disability Scale: 47. Initial Neck Disability Index: 24% on 08/09/2014.4Updated Oswestry Disability Index: 17.7% ( mininal disability ) on 07/12/13; updated [place] Back PainDisability Scale score: 26 on 07/12/13. Updated Oswestry Disability Index: 40% (moderate disability ) on 01/11/13; updated [place] Back Pain Disability Scale score: 44 on 01/10/13 Updated Oswestry Disability Index: 44% ( severe disability ) on 02/21/12; updated [place] Back Pain Disability Scale score: 33 on 02/21/12 Initial Oswestry Disability Index: 46% ( severe disability )on 09/14/10; initial [place] Back Pain Disability Scale score: 41 on On 11/02/2007 underwent left total knee arthroplasty with hardware removal for osteoarthritis, left knee with retained hardware by Son Rivera M.D. at [facility].6with no apparent hnnouhgg4Zqsl, Dr. 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 He reports a 38 year history of smoking at least 2 packs a day.; Number of years: 38; entered on: 07/02/16 Sex
--- OUTSIDE RECORDS SUMMARY | 2022-06-14 20:11 | XMS_ITS | Continuity of Care Document ---
:1950 Author Organization [address], [address] [place] [address]- Care Team Providers Name Role Phone Valdez Mckeon III, MD Primary Care Physician Encounter [facility] Date(s): 10/27/21 - 01/13/[address], [address] [place] [address]- Attending Physician: Thony Hodgson MD Referring Physician: Valdez Mckeon III, MD Allergies, Adverse Reactions, Alerts No Known Allergies Immunizations Given and Recorded Vaccine Date Status Refusal Reason influenza virus vaccine, inactivated1 04/20/17 Recorded pneumococcal 13-valent vaccine 04/04/17 Given tetanus/diphtheria/pertussis, acel(Tdap)2 05/26/15 Record ed Zoster Vaccine Live3 04/19/14 Recorded pneumococcal 23-valent vaccine4 03/22/14 Recorded 1[facility] History[facility] [id number] History[facility]4Location History: [facility] Medications Albuterol (Eqv-ProAir HFA) Inhalation, Every [...] Maintenance, 04/15/17 11:06:09, Route to Pharmacy Electronically, [id number], [facility] Start Date: 04/15/17 Status: [...] 05/17/17 16:29:40 EDT, Route to Pharmacy Electronically, [id number], [facility] [address] Start Date: 05/17/17 Status: OrderedLantus 100 u/ml [...] Maintenance, 04/15/17 11:06:02, Route to Pharmacy Electronically, [id number], [facility] Start Date: 04/15/17 Status: [...] Oswestry Disability Index: 52% severe disability and [place] Back Pain Disability Scale: 47. Initial Neck Disability Index: 24% on 08/09/2014.4Updated Oswestry Disability Index: 17.7% ( mininal disability ) on 07/12/13; updated [place] Back PainDisability Scale score: 26 on 07/12/13. Updated Oswestry Disability Index: 40% (moderate disability ) on 01/11/13; updated [place] Back Pain Disability Scale score: 44 on 01/10/13 Updated Oswestry Disability Index: 44% ( severe disability ) on 02/21/12; updated [place] Back Pain Disability Scale score: 33 on 02/21/12 Initial Oswestry Disability Index: 46% ( severe disability )on 09/14/10; initial [place] Back Pain Disability Scale score: 41 on On 11/02/2007 underwent left total knee arthroplasty with hardware removal for osteoarthritis, left knee with retained hardware by Son Rivera M.D. at [facility].6with no apparent fausskaa5Vrxb, Dr. 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 He reports a 38 year history of smoking at least 2 packs a day.; Number of years: 38; entered on: 07/02/16 Sex
--- OUTSIDE RECORDS SUMMARY | 2022-06-14 20:11 | XMS_ITS | Continuity of Care Document ---
:1950 Author Organization [address], [address] [place] [address]- Care Team Providers Name Role Phone Valdez Mckeon III, MD Primary Care Physician Encounter [facility] Date(s): 03/15/22 - 04/14/[address], [address] [place] [address]- Allergies, Adverse Reactions, Alerts No Known Allergies Immunizations Given and Recorded Vaccine Date Status Refusal Reason influenza virus vaccine, inactivated1 04/20/17 Recorded pneumococcal 13-valent vaccine 04/04/17 Given tetanus/diphtheria/pertussis, acel(Tdap)2 05/26/15 Record ed Zoster Vaccine Live3 04/19/14 Recorded pneumococcal 23-valent vaccine4 03/22/14 Recorded 1Location History: [facility] [id number] History: [facility] [id number] History: [facility] [address] [id number] [facility] Albuterol (Eqv-ProAir HFA) Inhalation, Every [...] Maintenance, 04/15/17 11:06:09, Route to Pharmacy Electronically, [id number], [facility] Start Date: 04/15/17 Status: [...] 02/09/22 12:44:00 EDT, Route to Pharmacy Electronically, [facility]/pharmacy #[id number], Partial fill upon patient request if the [...] 02/09/22 12:44:00 EDT, Route to Pharmacy Electronically, [facility]/pharmacy #[id number], Partial fill upon patient request if the [...] Oswestry Disability Index: 52% severe disability and [place] Back Pain Disability Scale: 47. Initial Neck Disability Index: 24% on 08/09/2014.4Updated Oswestry Disability Index: 17.7% ( mininal disability ) on 07/12/13; updated [place] Back PainDisability Scale score: 26 on 07/12/13. Updated [place]estry Disability Index: 40% (moderate disability ) on 01/11/13; updated [place] Back Pain Disability Scale score: 44 on 01/10/13 Updated Oswestry Disability Index: 44% ( severe disability ) on 02/21/12; updated [place] Back Pain Disability Scale score: 33 on 02/21/12 Initial Oswestry Disability Index: 46% ( severe disability )on 09/14/10; initial [place] Back Pain Disability Scale score: 41 on On 11/02/2007 underwent left total knee arthroplasty with hardware removal for osteoarthritis, left knee with retained hardware by Son Rivera M.D. at [facility].6with no apparent ejbqmrhu3Bzcb, Dr. 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 He reports a 38 year history of smoking at least 2 packs a day.; Number of years: 38; entered on: 07/02/16 Sex Care Team PersonnelName: Mike DELA CRUZ MD, Valdez Watts Address: [address] [place] [address]
--- OUTSIDE RECORDS SUMMARY | 2022-06-14 20:11 | XMS_ITS | Continuity of Care Document ---
:1950 Author Organization [address], [address] [place] [address]- Care Team Providers Name Role Phone Valdez Mckeon III, MD Primary Care Physician Encounter [facility] Date(s): 11/03/21 - 12/03/[address], [address] [place] [address]- Allergies, Adverse Reactions, Alerts No Known Allergies Immunizations Given and Recorded Vaccine Date Status Refusal Reason influenza virus vaccine, inactivated1 04/20/17 Recorded pneumococcal 13-valent vaccine 04/04/17 Given tetanus/diphtheria/pertussis, acel(Tdap)2 05/26/15 Record ed Zoster Vaccine Live3 04/19/14 Recorded pneumococcal 23-valent vaccine4 03/22/14 Recorded 1Location History: [facility] [id number] History: [facility] [id number] [facility] [id number] [facility] Medications Albuterol (Eqv-ProAir HFA) Inhalation, Every 6 [...] Maintenance, 04/15/17 11:06:09, Route to Pharmacy Electronically, [id number], [facility] Start Date: 04/15/17 Status: [...] 05/17/17 16:29:40 EDT, Route to Pharmacy Electronically, [id number], [facility] - [address] [place] [address] Start Date: 05/17/17 Status: OrderedLantus 100 u/ml [...] Maintenance, 04/15/17 11:06:02, Route to Pharmacy Electronically, [id number], [facility] Start Date: 04/15/17 Status: [...] Oswestry Disability Index: 52% severe disability and [place] Back Pain Disability Scale: 47. Initial Neck Disability Index: 24% on 08/09/2014.4Updated Oswestry Disability Index: 17.7% ( mininal disability ) on 07/12/13; updated [place] Back PainDisability Scale score: 26 on 07/12/13. Updated Oswestry Disability Index: 40% (moderate disability ) on 01/11/13; updated [place] Back Pain Disability Scale score: 44 on 01/10/13 Updated Oswestry Disability Index: 44% ( severe disability ) on 02/21/12; updated [place] Back Pain Disability Scale score: 33 on 02/21/12 Initial Oswestry Disability Index: 46% ( severe disability )on 09/14/10; initial [place] Back Pain Disability Scale score: 41 on On 11/02/2007 underwent left total knee arthroplasty with hardware removal for osteoarthritis, left knee with retained hardware by Son Rivera M.D. at [facility].6with no apparent ekcmaoxy4Lmio, Dr. 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 He reports a 38 year history of smoking at least 2 packs a day.; Number of years: 38; entered on: 07/02/16 Sex
--- OUTSIDE RECORDS SUMMARY | 2022-06-14 20:12 | XMS_ITS | Continuity of Care Document ---
:1950 Author Organization Pre [facility] Address [address] [place] [address]- Care Team Providers Name Role Phone Mike DELA CRUZ MD, Valdez Watts Primary Care Physician Encounter [facility] [place] Date(s): 01/07/22 - 02/24/22 [facility] [address] [place] [address]- Attending Physician: Paul Miller MD Admitting Physician: Paul Miller MD Referring Physician: Thony Hodgson MD Allergies, Adverse Reactions, Alerts No Known Allergies Immunizations Given and Recorded Vaccine Date Status Refusal Reason influenza virus vaccine, inactivated1 04/20/17 Recorded pneumococcal 13-valent vaccine 04/04/17 Given tetanus/diphtheria/pertussis, acel(Tdap)2 05/26/15 Record ed Zoster Vaccine Live3 04/19/14 Recorded pneumococcal 23-valent vaccine4 03/22/14 Recorded 1Location History: [facility] [id number] [id number] Medications Albuterol (Eqv-ProAir HFA) Inhalation, Every [...] Maintenance, 04/15/17 11:06:09, Route to Pharmacy Electronically, [id number], [facility] Start Date: 04/15/17 Status: [...] 02/09/22 12:44:00 EDT, Route to Pharmacy Electronically, [facility]/pharmacy #[id number], Partial fill upon [...] 02/09/22 12:44:00 EDT, Route to Pharmacy Electronically, [facility]/pharmacy #[id number], Partial fill upon [...] retained hardware by Son Rivera M.D. at [facility].6with no apparent ljcmgrca8Dcif, Dr. 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 He reports a 38 year history of smoking at least 2 packs a day.; Number of years: 38; entered on: 07/02/16 Sex
--- OUTSIDE RECORDS SUMMARY | 2022-06-14 20:12 | XMS_ITS | Continuity of Care Document ---
:1950 Author Organization [address], [address] [place] [address]- Care Team Providers Name Role Phone Valdez Mckeon III, MD Primary Care Physician Encounter [facility] Date(s): 03/10/22 - 03/17/[address], [address] [place] [address]- Attending Physician: Thony Hodgson MD Referring Physician: Valdez Mckeon III, MD Allergies, Adverse Reactions, Alerts No Known Allergies Immunizations Given and Recorded Vaccine Date Status Refusal Reason influenza virus vaccine, inactivated1 04/20/17 Recorded pneumococcal 13-valent vaccine 04/04/17 Given tetanus/diphtheria/pertussis, acel(Tdap)2 05/26/15 Record ed Zoster Vaccine Live3 04/19/14 Recorded pneumococcal 23-valent vaccine4 03/22/14 Recorded 1Location History: [facility] [id number] [facility] [id number] History[facility] [id number] History: [facility] Medications Albuterol [...] Maintenance, 04/15/17 11:06:09, Route to Pharmacy Electronically, [id number], [facility] Start Date: 04/15/17 Status: [...] 02/09/22 12:44:00 EDT, Route to Pharmacy Electronically, [facility]/pharmacy #[id number], Partial fill upon patient request [...] 02/09/22 12:44:00 EDT, Route to Pharmacy Electronically, [facility]/pharmacy #[id number], Partial fill upon patient request [...] retained hardware by Son Rivera M.D. at [facility].6with no apparent umuyzhqy7Hcqm, Dr. 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 He reports a 38 year history of smoking at least 2 packs a day.; Number of years: 38; entered on: 07/02/16 Sex
--- OUTSIDE RECORDS SUMMARY | 2022-06-14 20:12 | XMS_ITS | Continuity of Care Document ---
:1950 Author Organization [address], [address] [place] [address]- Care Team Providers Name Role Phone Valdez Mckeon III, MD Primary Care Physician Encounter [facility] Date(s): 01/06/22 - 02/05/[address], [address] [place] [address]- Allergies, Adverse Reactions, Alerts No Known Allergies Immunizations Given and Recorded Vaccine Date Status Refusal Reason influenza virus vaccine, inactivated1 04/20/17 Recorded pneumococcal 13-valent vaccine 04/04/17 Given tetanus/diphtheria/pertussis, acel(Tdap)2 05/26/15 Record ed Zoster Vaccine Live3 04/19/14 Recorded pneumococcal 23-valent vaccine4 03/22/14 Recorded 1Location History: [facility] [id number] History: [facility] [address] [id number] History: [facility] [id number] [facility] Medications Albuterol (Eqv-ProAir HFA) Inhalation, Every 6 [...] 06/24/16 Stop Date: 07/24/16 Status: OrderedBasaglar KwikPen = 22 units, Subcutaneous [...] Maintenance, 04/15/17 11:06:09, Route to Pharmacy Electronically, [id number], [facility] Start Date: 04/15/17 Status: [...] Maintenance, 04/15/17 11:06:02, Route to Pharmacy Electronically, [id number], [facility] Start Date: 04/15/17 Status: OrderedSuper B Complex 1 tablet, By Mouth, Daily at bedtime, 0 Refills, Maintenance, 02/16/18 7:02:13 EDT Start Date: 02/16/18 Status: OrderedtiZANidine 2 mg oral capsule 1 capsule = 2 mg, By Mouth, Every 8 hours, PRN as needed for muscle spasm, # 90 capsule, 0 Refills, Maintenance, 02/02/22 15:48:00 EDT, Capsule, Partial fill upon patient request if the prescription isfor a schedule II opioid drug. Start Date: 02/02/22 Stop Date: 03/04/22 Status: OrderedTrulicity Pen = 1.5 mg, Subcutaneous [...] Oswestry Disability Index: 52% severe disability and [place] Back Pain Disability Scale: 47. Initial Neck Disability Index: 24% on 08/09/2014.4Updated Oswestry Disability Index: 17.7% ( mininal disability ) on 07/12/13; updated [place] Back PainDisability Scale score: 26 on 07/12/13. Updated Oswestry Disability Index: 40% (moderate disability ) on 01/11/13; updated [place] Disability Scale score: 44 on 01/10/13 Updated Oswestry Disability Index: 44% ( severe disability ) on 02/21/12; updated [place] Disability Scale score: 33 on 02/21/12 Initial Oswestry Disability Index: 46% ( severe disability )on 09/14/10; initial [place] Pain Disability Scale score: 41 on On 11/02/2007 underwent left total knee arthroplasty with hardware removal for osteoarthritis, left knee with retained hardware by Son Rivera M.D. at [facility].6with no apparent axkzjndb4Lxrf, Dr. 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 He reports a 38 year history of smoking at least 2 packs a day.; Number of years: 38; entered on: 07/02/16 Sex
--- NOTE | 2022-06-14 20:29 | ED.GENADULT ---
HPI - General Adult General Chief complaint: Fall Stated complaint: fell 06/14 dizziness left knee pain Time Seen by Provider: 06/14/22 20:02 Source: patient Mode of arrival: ambulatory History of Present Illness HPI narrative: 71-year-old male with significant past medical history of [place] with stents and cannot recall his medications, denies any alcohol or drug use and states that he continues to smoke daily. Patient states that he got up this afternoon and felt very lightheaded and then his leg kicked out causing him to ?slowly come to the ground on his bottom?. He denies any loss of consciousness but felt like he was going to pass out and denies any head strike. Patient states he takes his prescribed medications at night and has not taken any of his blood pressure medications since yesterday. He denies any chest pain, shortness of breath, GI or symptoms and continues to complain of his left lower leg. Related Data Previous Rx's Medication Instructions Recorded cephalexin 500 mg capsule 500 mg PO QID 7 days #28 caps 09/07/21 naproxen 500 mg tablet 500 mg PO BID PRN pain 10 days #20 09/07/21 tabs Allergies Allergy/AdvReac Type Severity Reaction Status Date / Time UNK PAIN MED Allergy Intermediate HIVES Uncoded 04/24/20 14:53 Review of Systems Review of Systems: Pertinent positives and negatives as stated in HPI 10 point review of systems is otherwise negative. [facility] Past Medical History Source: nursing notes reviewed Surgical History H/O heart artery stent Social History Social History Use of substances other than those prescribed or required for medical reasons: No Advance Directives: No Advance Directives Information Provided: No Physical Exam ED Vital Signs: Vital Signs - 24 hr 06/14/22 19:07 06/14/22 20:00 06/14/22 20:56 Temperature 98.1 F 99.0 F Pulse Rate 94 95 85 Respiratory Rate 20 25 H 24 H Blood Pressure 110/50 L 97/56 L 96/47 L Pulse Oximetry 96 96 95 Oxygen Delivery Method Room Air Room Air Room Air 06/14/22 21:29 06/14/22 22:07 06/15/22 00:00 Temperature 98.8 F 98.7 F Pulse Rate 78 77 79 Respiratory Rate 17 24 H Blood Pressure 90/47 L 105/54 L 112/64 Pulse Oximetry 96 96 Oxygen Delivery Method Room Air Room Air 06/15/22 00:00 06/15/22 00:04 06/15/22 00:06 Temperature Pulse Rate 78 80 78 Respiratory Rate Blood Pressure 103/52 L 109/57 L 107/57 L Pulse Oximetry Oxygen Delivery Method BMI result Body Mass Index 31.1 VITAL SIGNS: Reviewed. GENERAL: Well developed, well nourished, in no acute distress. HEAD: Normocephalic/atraumatic EYES: PERRLA, EOMI EARS: Ext canals without abnormality OROPHARYNX: no oral lesions noted, posterior pharynx clear LUNGS: Normal breath sounds, no rhonchi/rales. No adventitious sounds or accessory muscle use. SpO2<95> CARDIOVASCULAR: Regular rate and rhythm without noted murmurs, no JVD or lower extremity edema. ABDOMEN: Soft, non-tender, non-distended with bowel sounds. MUSCULOSKELETAL: No tenderness, deformities, or effusions noted on gross inspection. EXTREMITIES: No cyanosis, clubbing or edema. SKIN: Inspection of the skin reveals no rashes NEUROLOGIC: Alert and oriented x 4. Strength and sensation to light touch were grossly intact x 4. Course Course Course Narrative: 71-year-old male with history and clinical presentation of near-syncope and is noted to be quite hypotensive here in the emergency room but is otherwise mentating well denies any shortness of breath or chest pain and appears to be very comfortable and is noted to be communicating on his cellphone and there are no focal deficits. Patient is oxygenating well and does carry an underlying diagnosis COPD. Review of all investigations consistent with dehydration the suspect patient has underlying CKD, patient received 2 L of IV fluids and will have BMP repeated. Blood pressures have significantly resolved and patient was cautioned about taking his hypertension medications until his blood pressure had clearly returned to normal. Serial troponins flat and no acute EKG changes. No evidence of fluid overload or COPD exacerbation. Signed out to Dr Brooks f/suzette BMP Medications Administered Discontinued Medications Generic Name Dose Route Start Last Admin Trade Name Freq PRN Reason Stop Dose Admin Sodium Chloride 1,000 mls @ 999 mls/hr 06/14/22 21:00 06/14/22 21:12 Ns IV 06/14/22 22:00 999 mls/hr .Q1H1M HOLGER Administration Sodium Chloride 1,000 mls @ 999 mls/hr 06/14/22 22:15 06/14/22 22:34 Ns IV 06/14/22 23:15 999 mls/hr .Q1H1M HOLGER Administration Medical Decision Making Lab Data Result diagrams: 06/14/22 19:41 06/14/22 19:41 Labs: Lab Results 06/14/22 06/14/22 06/14/22 Range/Units 19:41 19:41 20:11 WBC 9.0 (4.8-10.8) X10*3/uL RBC 4.89 (4.60-5.80) X10*6/uL Hgb 14.4 (14.0-18.0) g/dl Hct 44.1 (42.0-52.0) % MCV 90.2 (80.0-98.0) fL MCH 29.4 (27.0-33.0) pg MCHC 32.7 (31.0-36.0) g/dl RDW 14.6 (11.0-16.0) % Plt Count 199 (160-400) X10*3/uL MPV 10.6 (9.4-12.4) fL Immature Gran % (Auto) 0.4 (0.0-0.4) % Neut % (Auto) 75.8 H (45-73) % Lymph % (Auto) 14.3 L (20-40) % [place] % (Auto) 8.5 (2-11) % Eos % (Auto) 0.7 (0-4) % Baso % (Auto) 0.3 (0-2) % Lymph # (Auto) 1.3 (1.2-4.9) X10*3/uL [place] # (Auto) 0.8 (0.1-1.2) X10*3/uL Eos # (Auto) 0.1 (0.0-0.4) X10*3/uL Baso # (Auto) 0.0 (0.0-0.2) X10*3/uL Abs Immat Gran (auto) 0.04 H (0.00-0.03) X10*3/uL Absolute Neuts (auto) 6.8 (2.0-8.3) x10*3/uL Absolute Nucleated RBC 0.000 (0.0-0.012) X10*3/uL Nucleated RBC % (auto) 0.0 (0.0-0.2) /100WBC D-Dimer High Sensitivty NG/ML Sodium 140 (135-145) mmol/L Potassium 5.6 H (3.3-5.1) mmol/L Chloride 100 (96-108) mmol/L Carbon Dioxide 27 (22-29) mmol/L Anion Gap 19 (12-20) BUN 51 H (9-16) mg/dL Creatinine 2.44 H (0.5-1.4) mg/dL Estim Creat Clear Calc 30.7 Estimated GFR 26 Random Glucose 259 H (60-115) mg/dL Calcium 9.4 (8.4-10.2) mg/dL Troponin I High Sens 13.7 (<3.5-35.0) ng/L B-Natriuretic Peptide (<100) pg/mL Urine Color Urine Appearance Urine pH (5.0-9.0) Ur Specific [place] (1.005-1.025) Urine Protein (Neg-Trace) mg/dL Urine Glucose (UA) (Negative) mg/dL Urine Ketones (Negative) mg/dL Urine Blood (Negative) Urine Nitrite (Negative) Ur Leukocyte Esterase (Negative) Urine RBC (0-2) /HPF Urine WBC (0-5) /HPF Ur Squamous Epith Cells (0-2) /HPF Calcium Oxalate Crystal Urine Bacteria (None Seen) Hyaline Casts (0-2) /LPF Urine Opiates Screen (Not Detect) Urine Fentanyl Screen (Not Detect) Ur Barbiturates Screen (Not Detect) Ur Phencyclidine Scrn (Not Detect) Ur Amphetamines Screen (Not Detect) U Benzodiazepines Scrn (Not Detect) Urine Cocaine Screen (Not Detect) U Marijuana (THC) Screen (Not Detect) Influenza Type A (PCR) (Negative) Influenza Type B (PCR) (Negative) RSV RNA Qual (PCR) (Negative) SARS-CoV-2 RNA (RT-PCR) (Negative) 06/14/22 06/14/22 06/14/22 Range/Units 20:11 21:17 21:17 WBC (4.8-10.8) X10*3/uL RBC (4.60-5.80) X10*6/uL Hgb (14.0-18.0) g/dl Hct (42.0-52.0) % MCV (80.0-98.0) fL MCH (27.0-33.0) pg MCHC (31.0-36.0) g/dl RDW (11.0-16.0) % Plt Count (160-400) X10*3/uL MPV (9.4-12.4) fL Immature Gran % (Auto) (0.0-0.4) % Neut % (Auto) (45-73) % Lymph % (Auto) (20-40) % [place] % (Auto) (2-11) % Eos % (Auto) (0-4) % Baso % (Auto) (0-2) % Lymph # (Auto) (1.2-4.9) X10*3/uL [place] # (Auto) (0.1-1.2) X10*3/uL Eos # (Auto) (0.0-0.4) X10*3/uL Baso # (Auto) (0.0-0.2) X10*3/uL Abs Immat Gran (auto) (0.00-0.03) X10*3/uL Absolute Neuts (auto) (2.0-8.3) x10*3/uL Absolute Nucleated RBC (0.0-0.012) X10*3/uL Nucleated RBC % (auto) (0.0-0.2) /100WBC D-Dimer High Sensitivty 279 NG/ML Sodium (135-145) mmol/L Potassium (3.3-5.1) mmol/L Chloride (96-108) mmol/L Carbon Dioxide (22-29) mmol/L Anion Gap (12-20) BUN (9-16) mg/dL Creatinine (0.5-1.4) mg/dL Estim Creat Clear Calc Estimated GFR Random Glucose (60-115) mg/dL Calcium (8.4-10.2) mg/dL Troponin I High Sens (<3.5-35.0) ng/L B-Natriuretic Peptide 99 (<100) pg/mL Urine Color Urine Appearance Urine pH (5.0-9.0) Ur Specific [place] (1.005-1.025) Urine Protein (Neg-Trace) mg/dL Urine Glucose (UA) (Negative) mg/dL Urine Ketones (Negative) mg/dL Urine Blood (Negative) Urine Nitrite (Negative) Ur Leukocyte Esterase (Negative) Urine RBC (0-2) /HPF Urine WBC (0-5) /HPF Ur Squamous Epith Cells (0-2) /HPF Calcium Oxalate Crystal Urine Bacteria (None Seen) Hyaline Casts (0-2) /LPF Urine Opiates Screen (Not Detect) Urine Fentanyl Screen (Not Detect) Ur Barbiturates Screen (Not Detect) Ur Phencyclidine Scrn (Not Detect) Ur Amphetamines Screen (Not Detect) U Benzodiazepines Scrn (Not Detect) Urine Cocaine Screen (Not Detect) U Marijuana (THC) Screen (Not Detect) Influenza Type A (PCR) NEGATIVE (Negative) Influenza Type B (PCR) NEGATIVE (Negative) RSV RNA Qual (PCR) NEGATIVE (Negative) SARS-CoV-2 RNA (RT-PCR) NEGATIVE (Negative) 06/15/22 06/15/22 06/15/22 Range/Units 00:19 00:19 01:03 WBC (4.8-10.8) X10*3/uL RBC (4.60-5.80) X10*6/uL Hgb (14.0-18.0) g/dl Hct (42.0-52.0) % MCV (80.0-98.0) fL MCH (27.0-33.0) pg MCHC (31.0-36.0) g/dl RDW (11.0-16.0) % Plt Count (160-400) X10*3/uL MPV (9.4-12.4) fL Immature Gran % (Auto) (0.0-0.4) % Neut % (Auto) (45-73) % Lymph % (Auto) (20-40) % [place] % (Auto) (2-11) % Eos % (Auto) (0-4) % Baso % (Auto) (0-2) % Lymph # (Auto) (1.2-4.9) X10*3/uL [place] # (Auto) (0.1-1.2) X10*3/uL Eos # (Auto) (0.0-0.4) X10*3/uL Baso # (Auto) (0.0-0.2) X10*3/uL Abs Immat Gran (auto) (0.00-0.03) X10*3/uL Absolute Neuts (auto) (2.0-8.3) x10*3/uL Absolute Nucleated RBC (0.0-0.012) X10*3/uL Nucleated RBC % (auto) (0.0-0.2) /100WBC D-Dimer High Sensitivty NG/ML Sodium (135-145) mmol/L Potassium (3.3-5.1) mmol/L Chloride (96-108) mmol/L Carbon Dioxide (22-29) mmol/L Anion Gap (12-20) BUN (9-16) mg/dL Creatinine (0.5-1.4) mg/dL Estim Creat Clear Calc Estimated GFR Random Glucose (60-115) mg/dL Calcium (8.4-10.2) mg/dL Troponin I High Sens 12.8 (<3.5-35.0) ng/L B-Natriuretic Peptide (<100) pg/mL Urine Color Dark Yellow Urine Appearance Cloudy Urine pH 5.5 (5.0-9.0) Ur Specific [place] 1.020 (1.005-1.025) Urine Protein Trace (Neg-Trace) mg/dL Urine Glucose (UA) Negative (Negative) mg/dL Urine Ketones Trace (Negative) mg/dL Urine Blood Negative (Negative) Urine Nitrite Negative (Negative) Ur Leukocyte Esterase Small (1+) H (Negative) Urine RBC 0-2 (0-2) /HPF Urine WBC 11-20 H (0-5) /HPF Ur Squamous Epith Cells 0-2 (0-2) /HPF Calcium Oxalate Crystal Present Urine Bacteria 1+ (None Seen) Hyaline Casts >20 (0-2) /LPF Urine Opiates Screen Not Detected (Not Detect) Urine Fentanyl Screen Not Detected (Not Detect) Ur Barbiturates Screen Not Detected (Not Detect) Ur Phencyclidine Scrn Not Detected (Not Detect) Ur Amphetamines Screen Not Detected (Not Detect) U Benzodiazepines Scrn Not Detected (Not Detect) Urine Cocaine Screen Not Detected (Not Detect) U Marijuana (THC) Screen POSITIVE H (Not Detect) Influenza Type A (PCR) (Negative) Influenza Type B (PCR) (Negative) RSV RNA Qual (PCR) (Negative) SARS-CoV-2 RNA (RT-PCR) (Negative) ECG Data Attestation: I personally reviewed and interpreted this ECG as follows: Prior ECG tracings: available for review Interpretation: Sinus rhythm with first-degree AV block, no STEMI, [place] -220, QRS and QTC are within normal limits. Critical Care Time Critical Care Time Critical Care Time: Yes Total Critical Care Time: 30 Attestation: I personally attest to this time spent taking care of the patient. Discharge Plan Discharge Clinical Impression: Dehydration, Marijuana use, Light-headedness Patient Disposition: Still a Patient Instructions: Dehydration (ED), Lightheadedness (ED) Additional Instructions: 1. Resume all home medications as prescribed, except the blood pressure medication which I would hold until your blood pressure has completely improved.. 2. I recommend that you increase the amount of your water intake. 3. It will be important for you to follow-up with your primary care provider to further discuss management of your blood pressure medication. Return to the ER for worsening symptoms. Prescriptions: No Action cephalexin 500 mg capsule 500 mg PO QID 7 Days Qty: 28 0RF naproxen 500 mg tablet 500 mg PO BID PRN (Reason: pain) 10 Days Qty: 20 0RF
[2022-06-14 20:36] LABS: B Type Natriuretic Peptide 99 pg/mL (<100)
[2022-06-14 20:37] LABS: Troponin-I High Sensitivity 13.7 ng/L (<3.5-35.0)
--- NOTE | 2022-06-14 20:55 | ECG_ITS ---
Test Reason : SYNCOPE Blood Pressure : / mmHG Vent. Rate : 078 BPM Atrial Rate : 078 BPM P-R Int : 242 ms QRS Dur : 102 ms QT Int : 390 ms P-R-T Axes : 053 -23 094 degrees QTc Int : 444 ms Sinus rhythm with 1st degree A-V block Low voltage QRS Inferior infarct (cited on or before 21-JUN-2016) Anterolateral infarct (cited on or before 21-JUN-2016) Abnormal ECG When compared with ECG of 14-JUN-2022 19:44, No significant change was found Referred By: Barbara Castro Electronically Signed By:MELISSA MACHADO MD
[2022-06-14 20:56] VITALS: BP 96/47; PULSE 85; RESP 24; O2SAT 95
[2022-06-14] MEDS: 0.9 % Sodium Chloride 1,000 ML 999 ML IV ×2 (21:12→22:34)
[2022-06-14 21:29] VITALS: BP 90/47; PULSE 78; RESP 17; TEMP 37.1; O2SAT 96
[2022-06-14 21:42] LABS: D Dimer High Sensitivity 279 NG/ML
[2022-06-14 22:07] VITALS: BP 105/54; PULSE 77
[2022-06-14 22:18] LABS: Influenza A PCR NEGATIVE (Negative); Influenza B PCR NEGATIVE (Negative); Resp Syncy Virus RNA Qual PCR NEGATIVE (Negative); SARS COV2 PCR INHOUSE NEGATIVE (Negative)
[2022-06-15] VITALS: BP 103/52; BP 112/64; PULSE 78; PULSE 79; RESP 24; TEMP 37.1; O2SAT 96
[2022-06-15 00:04] VITALS: BP 109/57; PULSE 80
[2022-06-15 00:06] VITALS: BP 107/57; PULSE 78
[2022-06-15 00:30] LABS: Appearance Urine Cloudy; Color Urine Dark Yellow; Glucose Urine UA Negative (Negative); Leukocyte Esterase Urine Small (1+) (Negative); Nitrite Urine Negative (Negative); PH 5.5 (5.0-9.0); UMIC TRIGGER UACC YES; Urine Blood Negative (Negative); Urine Ketones Trace mg/dL (Negative); Urine Protein Trace mg/dL (Neg-Trace)
[2022-06-15 00:51] LABS: Calcium Oxalate Crystals Urine Present; Hyaline Casts Urine >20 /LPF (0-2); RBC Urine 0-2 /HPF (0-2); Squamous Epithelial Cell Urine 0-2 /HPF (0-2); UACC Culture Trigger YES
[2022-06-15 00:54] LABS: Bacteria Urine 1+ (None Seen)
[2022-06-15 01:17] LABS: Amphetamine Screen Urine Not Detected (Not Detect); Barbiturates, Urine Not Detected (Not Detect); Benzodiazepines Screen Urine Not Detected (Not Detect); Cannabinoid Screen Urine POSITIVE (Not Detect); Cocaine Screen Urine Not Detected (Not Detect); Fentanyl, urine Not Detected (Not Detect); Opiate Screen Urine Not Detected (Not Detect); Phencyclidine Screen Urine Not Detected (Not Detect)
[2022-06-15 01:27] LABS: Troponin-I High Sensitivity 12.8 ng/L (<3.5-35.0)
--- NOTE | 2022-06-15 01:37 | PC.NURSE ---
This RN place 20 in R and L ACs. Iv fluids hung, delay in completion of fluids due to position of pt arm. This RN attempted use of pressure bag on fluids with no success. Towel placed under pt's arm to facilitate in keeping arm in straight position. fluids running well after this attempt.
[2022-06-15 01:40] VITALS: BP 111/62; PULSE 76; RESP 31; TEMP 36.6; O2SAT 94
[2022-06-15 01:45] LABS: Anion Gap 14 (12-20); Blood Urea Nitrogen 45 mg/dL (9-16); Calcium 8.4 mg/dL (8.4-10.2); Carbon Dioxide 24 mmol/L (22-29); Chloride 107 mmol/L (96-108); Creatinine Clr Calc Pharmacy 50.4; Estimated Glomerular Filt Rate 46; Glucose Random 128 mg/dL (60-115); Potassium 4.3 mmol/L (3.3-5.1); Sodium 141 mmol/L (135-145)
== END 2022-06-15 02:13 | disposition home or self-care (01) ==
PROVIDERS: Emergency Medicine; Emergency Provider Student in an Organized Health Care Education/Training Program
DX: E86.0 Dehydration (principal); R42 Dizziness and giddiness; I95.9 Hypotension, unspecified; F12.90 Cannabis use, unspecified, uncomplicated; M79.662 Pain in left lower leg; Z20.822 Contact with and (suspected) exposure to COVID-19; Z79.899 Other long term (current) drug therapy
CPT/HCPCS: 0241U; 36415; 71045; 71250; 74176; 80048; 80307; 81001; 83880; 84484; 85025; 85379; 87086; 93005; 96360; 96361; 99285

== ENCOUNTER → 2022-10-26 15:02 | Outpatient (BNVA) | payer MEDICARE, SELFPAY | PROVIDERS: Visit Provider Nurse Practitioner Family | DX: M96.1 Postlaminectomy syndrome, not elsewhere classified (principal); M51.36 Other intervertebral disc degeneration, lumbar region; M62.838 Other muscle spasm; M54.16 Radiculopathy, lumbar region; E11.42 Type 2 diabetes mellitus with diabetic polyneuropathy; G89.4 Chronic pain syndrome | CPT/HCPCS: 99202 ==

== ENCOUNTER 2023-04-14 16:03 | Emergency (ER) | payer MEDICARE, SELFPAY ==
[2023-04-14 16:17] VITALS: BP 91/69; PULSE 92; RESP 18; TEMP 36.6; O2SAT 92; BMI 30.3
--- NOTE | 2023-04-14 16:18 | ED.NAVMDI ---
HPI - Nausea/Vomiting/Diarrhea General Chief complaint: Nausea/Vomiting/Diarrhea Stated complaint: vomiting Time Seen by Provider: 04/14/23 18:44 Source: patient Mode of arrival: ambulatory Limitations: no limitations History of Present Illness HPI Narrative: Patient comes to the emergency room complaining of nausea and vomiting that started couple of hours after eating couple of hamburgers. Patient complaining of abdominal cramping, nausea vomiting, no diarrhea, no fever or chills, no URI or UTI symptoms, no chest pain or shortness of breath. Related Data Home Medications Medication Instructions Recorded Confirmed aspirin 81 mg chewable tablet 81 mg PO DAILY 10/26/22 10/26/22 carvedilol 6.25 mg tablet 6.25 mg PO BID 10/26/22 10/26/22 chlorthalidone 25 mg tablet 25 mg PO DAILY 10/26/22 10/26/22 clopidogrel 75 mg tablet 75 mg PO DAILY 10/26/22 10/26/22 diclofenac sodium 1 % topical gel 4 g topical QID 10/26/22 10/26/22 dulaglutide 1.5 mg/0.5 mL mg subcut 10/26/22 10/26/22 subcutaneous pen injector (Trulicity) gabapentin 800 mg tablet 800 mg PO TID 10/26/22 10/26/22 ibuprofen 800 mg tablet 800 mg PO BID PRN pain 10/26/22 10/26/22 insulin glargine 100 unit/mL (3 22 unit subcut BID 10/26/22 10/26/22 mL) subcutaneous pen (Basaglar KwikPen U-100 Insulin) lisinopril 10 mg tablet 5 mg PO DAILY 10/26/22 10/26/22 metformin 500 mg tablet 500 mg PO DAILY 10/26/22 10/26/22 rosuvastatin 40 mg tablet 40 mg PO DAILY 10/26/22 10/26/22 Previous Rx's Medication Instructions Recorded naproxen 500 mg tablet 500 mg PO BID PRN pain 10 days #20 09/07/21 tabs baclofen 10 mg tablet 10 mg PO TID PRN for muscle spasm 02/28/23 #90 tabs ondansetron 4 mg disintegrating 4 mg PO Q6H PRN nausea and 04/14/23 tablet vomiting #10 tabs Allergies Allergy/AdvReac Type Severity Reaction Status Date / Time UNK PAIN MED Allergy Intermediate HIVES Uncoded 10/26/22 15:48 Review of Systems Review of Systems: Constitutional : No Weight loss, No Fever, No Chills, No Night Sweats, No Fatigue, No Malaise ENT/Mouth : No Hearing loss, No Ear Pain, No Nasal Congestion, No Sinus Pain, No Hoarseness, No sore throat, No Rhinorrhea, No Swallowing Difficulty Eyes: No Eye Pain, No Swelling, No Redness, No Foreign Body, No Discharge, No Vision Changes Cardiovascular : No Chest Pain, No SOB, No Dyspnea on Exertion, No Orthopnea, No Edema, No Palpitations Respiratory : No Cough, No Sputum, No Wheezing, No Smoke Exposure, No Dyspnea Gastrointestinal : Complain of nausea vomiting, No Diarrhea, No Constipation, intermittent abdominal cramping, No abdominal Pain, No Hematochezia, No Melena Genitourinary : no irregular bleeding, No Dysuria, No Urinary Frequency, No Hematuria, No Urinary Incontinence, No Urgency, No Flank Pain, No Urinary Flow Changes, No Hesitancy Musculoskeletal : No joint pain, No Myalgias, No Joint Swelling Skin : No Skin Lesions, No rash Neuro : No Weakness, No Numbness, No Paresthesias, No Loss of Consciousness, No Dizziness, No Headache Psych : No Anxiety/Panic, No Depression, No SI/HI/AH/VH, No Social Issues, Heme/Lymph: No Bruising, No Bleeding,No Lymphadenopathy Endocrine : No Polyuria, No Polydipsia, No Temperature Intolerance [facility] Past Medical History Medical History History of myocardial infarction Depression Failed back syndrome Asthma Insomnia MONSERRAT (obstructive sleep apnea) History of poliomyelitis Vitamin D deficiency Microalbuminuria CAD (coronary artery disease) Type 2 diabetes mellitus Peripheral neuropathy Osteoarthritis of 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, bilateral Obesity Tobacco use Cervicalgia Segmental and somatic dysfunction of cervical region Thoracic segment dysfunction Oropharyngeal dysphagia COPD (chronic obstructive pulmonary disease) Polio Pituitary microadenoma Essential hypertension Left carpal tunnel syndrome Surgical History History of knee joint replacement History of hand surgery Previous back surgery H/O heart artery stent Social History Social History (Updated 10/27/22 @ 21:03 by WEI Aguilar) Alcohol intake: never Tobacco use type: Cigarette Cigarette Packs Per Day: 0.50 Cigarettes Per Day: 10 Years Smoked: 36 Smoked in Last 30 Days: Yes e-Cigarette/Vaping Use: Never Used Second Hand Smoke Exposure: Yes Advance Directives: Yes Advance Directives Information Provided: No Advance Directives on File: No Physical Exam Vital Signs: Vital Signs: Last Vital Signs Temp 97.6 F 04/14/23 20:04 Pulse 80 04/14/23 20:04 Resp 16 04/14/23 20:04 BP 134/66 04/14/23 20:04 Pulse Ox 92 04/14/23 20:04 O2 Del Method Room Air 04/14/23 20:04 BMI result Body Mass Index 30.3 Const: Other: Appearance: Alert. Oriented X3. No acute distress. Well-appearing Eyes: Pupils equal, round and reactive to light. ENT: Pharynx normal. Neck: Normal inspection. Neck supple. No lymph nodes noted. No crepitus CVS: Normal heart rate and rhythm. Pulses normal. Normal S1 and S2 Respiratory: No respiratory distress. Breath sounds normal. No Wheezing. No rales Abdomen: Soft and nontender. No rigidity. No distention. Skin: Skin warm and dry. Normal skin color. Normal skin turgor. Extremities: No lower extremity edema. No Lacerations. No Rash Neuro: Oriented X 3. No motor deficit. No sensory deficit. Moving all extremities. No slurred speech. CN 2 through 12 grossly intact Psych: calm, cooperative, normal affect Course Course Course Narrative: SANDRA 16:20PM - 72yoM presenting to the ER with complaints of nausea/vomiting with abdominal cramping unable to keep anything down since last night worse today. No recent travel no sick at home. Reports he ate 2 hamburgers although that was today. Denies possible bad food exposure. Denies recent antibiotic usage. Denies any other symptoms complaints or concerns at this time. Plan: Labs, UA patient will be sent back to the waiting room to be evaluated in the ED. Medications Administered Discontinued Medications Generic Name Dose Route Start Last Admin Trade Name Frejr PRN Reason Stop Dose Admin Ondansetron HCl 4 mg 04/14/23 20:00 04/14/23 20:26 Ondansetron Odt 4 Mg Tab.Vitalydis TRANSLINGU 04/14/23 20:01 4 mg ONCE ONE Administration Medical Decision Making Medical Decision Making MDM Narrative: I discussed the labs with the patient, hematology relatively normal, no acute abnormality. Chemistry within normal limits. -it is likely that patient had food poisoning, versus gastritis, versus gastroenteritis. -patient given p.o. Zofran, patient feeling better. Patient instructed to stable hydrated with fluids containing electrolytes, patient agrees with plan. Differential Diagnosis Differential Diagnoses: The differential diagnosis associated with the presentation includes (As above) Lab Data [facility] Lab Attestation statement: I reviewed the patient's lab results. 04/14/23 16:41 04/14/23 16:41 Labs: Lab Results 04/14/23 04/14/23 Range/Units 16:33 16:41 WBC 7.7 (4.8-10.8) X10*3/uL RBC 4.60 (4.60-5.80) X10*6/uL Hgb 13.3 L (14.0-18.0) g/dl Hct 38.9 L (42.0-52.0) % MCV 84.6 (80.0-98.0) fL MCH 28.9 (27.0-33.0) pg MCHC 34.2 (31.0-36.0) g/dl RDW 15.1 (11.0-16.0) % Plt Count 168 (160-400) X10*3/uL MPV 10.8 (9.4-12.4) fL Immature Gran % (Auto) 0.3 (0.0-0.4) % Neut % (Auto) 74.1 H (45-73) % Lymph % (Auto) 14.6 L (20-40) % Crane % (Auto) 9.3 (2-11) % Eos % (Auto) 1.4 (0-4) % Baso % (Auto) 0.3 (0-2) % Lymph # (Auto) 1.1 L (1.2-4.9) X10*3/uL Crane # (Auto) 0.7 (0.1-1.2) X10*3/uL Eos # (Auto) 0.1 (0.0-0.4) X10*3/uL Baso # (Auto) 0.0 (0.0-0.2) X10*3/uL Abs Immat Gran (auto) 0.02 (0.00-0.03) X10*3/uL Absolute Neuts (auto) 5.7 (2.0-8.3) x10*3/uL Absolute Nucleated RBC 0.000 (0.0-0.012) X10*3/uL Nucleated RBC % (auto) 0.0 (0.0-0.2) /100WBC PT 16.7 H (11.1-13.3) SEC INR 1.4 H (0.9-1.1) Sodium 141 (135-145) mmol/L Potassium 4.4 (3.3-5.1) mmol/L Chloride 106 (96-108) mmol/L Carbon Dioxide 27 (22-29) mmol/L Anion Gap 12 (12-20) BUN 43 H (9-16) mg/dL Creatinine 1.39 (0.5-1.4) mg/dL Estim Creat Clear Calc 52.5 Estimated GFR 50 Random Glucose 134 H (60-115) mg/dL Calcium 9.9 D (8.4-10.2) mg/dL Magnesium 2.3 (1.6-2.6) mg/dL Total Bilirubin 0.5 (0.0-1.0) mg/dL AST 33 (5-37) U/L ALT 36 (0-40) U/L Alkaline Phosphatase 71 (39-117) U/L Total Protein 7.4 (6.5-8.0) g/dL Albumin 4.4 (3.5-5.0) g/dL Lipase 16 (8-78) U/L Ethyl Alcohol < 10 mg/dL Influenza Type A (PCR) NEGATIVE (Negative) Influenza Type B (PCR) NEGATIVE (Negative) RSV RNA Qual (PCR) NEGATIVE (Negative) SARS-CoV-2 RNA (RT-PCR) NEGATIVE (Negative) Discharge Plan Discharge Clinical Impression: Gastroenteritis Patient Disposition: Home, Self-Care Instructions: Food Poisoning (ED) Additional Instructions: Please follow-up with your primary care physician tomorrow. If you have any worsening or new symptoms, please return to the emergency room or call 911 Prescriptions: New ondansetron 4 mg tablet,disintegrating 4 mg PO Q6H PRN (Reason: nausea and vomiting) Qty: 10 0RF No Action baclofen 10 mg tablet 10 mg PO TID PRN (Reason: for muscle spasm) Qty: 90 3RF naproxen 500 mg tablet 500 mg PO BID PRN (Reason: pain) 10 Days Qty: 20 0RF carvedilol 6.25 mg tablet 6.25 mg PO BID rosuvastatin 40 mg tablet 40 mg PO DAILY chlorthalidone 25 mg tablet 25 mg PO DAILY Trulicity 1.5 mg/0.5 mL pen injector subcut gabapentin 800 mg tablet 800 mg PO TID clopidogrel 75 mg tablet 75 mg PO DAILY diclofenac sodium 1 % gel 4 g topical QID ibuprofen 800 mg tablet 800 mg PO BID PRN (Reason: pain) lisinopril 10 mg tablet 5 mg PO DAILY insulin glargine [Basaglar KwikPen U-100 Insulin] 100 unit/mL (3 mL) insulin pen 22 unit subcut BID metformin 500 mg tablet 500 mg PO DAILY aspirin 81 mg tablet,chewable 81 mg PO DAILY Interventions: ED Discharge Assessment Last Done: 04/14/23 20:31 Discharge Date/Time: 04/14/23 20:31
[2023-04-14 16:45] LABS: MANUAL DIFF FLAG NO
[2023-04-14 16:54] LABS: Basophils Percent Auto 0.3 % (0-2); Eosinophils Absolute Auto 0.1 X10*3/uL (0.0-0.4); Eosinophils Percent Auto 1.4 % (0-4); Hematocrit 38.9 % (42.0-52.0); Hemoglobin 13.3 g/dl (14.0-18.0); Imm Gran Abs Auto 0.02 X10*3/uL (0.00-0.03); Imm Gran Pct Auto 0.3 % (0.0-0.4); Lymphocytes Absolute Auto 1.1 X10*3/uL (1.2-4.9); Lymphocytes Percent Auto 14.6 % (20-40); Mean Corpuscular HGB Conc 34.2 g/dl (31.0-36.0); Mean Corpuscular Hemoglobin 28.9 pg (27.0-33.0); Mean Corpuscular Volume 84.6 fL (80.0-98.0); Mean Platelet Volume 10.8 fL (9.4-12.4); Monocytes Absolute Auto 0.7 X10*3/uL (0.1-1.2); Monocytes Percent Auto 9.3 % (2-11); Neutrophils Absolute Auto 5.7 x10*3/uL (2.0-8.3); Neutrophils Percent Auto 74.1 % (45-73); Platelet Count 168 X10*3/uL (160-400); Red Cell Distribution Width 15.1 % (11.0-16.0); White Blood Count 7.7 X10*3/uL (4.8-10.8)
[2023-04-14 16:58] LABS: INTERNATIONAL NORM RATIO 1.4 (0.9-1.1); Prothrombin Time 16.7 SEC (11.1-13.3)
[2023-04-14 17:05] LABS: Alanine Aminotransferase 36 U/L (0-40); Albumin Level 4.4 g/dL (3.5-5.0); Alkaline Phosphatase 71 U/L (39-117); Anion Gap 12 (12-20); Aspartate Amino Transferase 33 U/L (5-37); Bilirubin Total 0.5 mg/dL (0.0-1.0); Blood Urea Nitrogen 43 mg/dL (9-16); Calcium 9.9 mg/dL (8.4-10.2); Carbon Dioxide 27 mmol/L (22-29); Chloride 106 mmol/L (96-108); Creatinine Clr Calc Pharmacy 52.5; Estimated Glomerular Filt Rate 50; Glucose Random 134 mg/dL (60-115); Lipase 16 U/L (8-78); Magnesium 2.3 mg/dL (1.6-2.6); Potassium 4.4 mmol/L (3.3-5.1); Sodium 141 mmol/L (135-145); Total Protein 7.4 g/dL (6.5-8.0)
[2023-04-14 17:06] LABS: Ethanol < 10 mg/dL
[2023-04-14 17:37] LABS: Influenza A PCR NEGATIVE (Negative); Influenza B PCR NEGATIVE (Negative); Resp Syncy Virus RNA Qual PCR NEGATIVE (Negative); SARS COV2 PCR INHOUSE NEGATIVE (Negative)
[2023-04-14 20:04] VITALS: BP 134/66; PULSE 80; RESP 16; TEMP 36.4; O2SAT 92
[2023-04-14] MEDS: Ondansetron ODT 4 MG TAB.RAPDIS TRANSLINGU (20:26)
== END 2023-04-14 20:31 | disposition home or self-care (01) ==
PROVIDERS: Physician Assistant Medical; Emergency Provider Emergency Medicine; PCP Internal Medicine
DX: K52.9 Noninfective gastroenteritis and colitis, unspecified (principal); Z20.822 Contact with and (suspected) exposure to COVID-19; Z20.828 Contact with and (suspected) exposure to other viral communicable diseases; Z79.899 Other long term (current) drug therapy
CPT/HCPCS: 0241U; 36415; 80053; 80307; 83690; 83735; 85025; 85610; 99283; 99284

== ENCOUNTER 2023-12-16 12:32 | Outpatient (REF) | payer MEDICARE, SELFPAY | END 2023-12-16 12:33 | disposition home or self-care (01) | LOC: HO.SH 12:32 | PROVIDERS: Visit Provider Internal Medicine | DX: Z01.118 Encounter for examination of ears and hearing with other abnormal findings (principal); H90.3 Sensorineural hearing loss, bilateral | CPT/HCPCS: 92557; 92567 ==